=== PATIENT | female | born 1960 | race Caucasian/White ===

== ENCOUNTER 2018-06-22 22:25 | Emergency (ER) | payer BC, OTHER ==
[2018-06-22 22:30] VITALS: BP 157/81; PULSE 83; RESP 20; TEMP 97.8
[2018-06-22] MEDS ORDERED: traMADol 50 MG STARTER PACK 3 TAB BTL PO STA (23:20)
--- NOTE | 2018-06-22 23:24 | ED ---
ENT HPI - General Source: patient Mode of arrival: ambulatory Limitations: no limitations <Francisca Morin - Last Filed: 06/23/18 00:02> <Karmen Meraz - Last Filed: 06/23/18 04:09> - General Chief complaint: Dental/Oral Stated complaint: Swollen jaw - History of Present Illness Initial comments: 57-year-old female no past medical history presenting today for chief complaint of right lower dental pain. Patient states that she began noticing a toothache in the area where she has a current cracked tooth on Thursday afternoon. Patient presented to her dentist on Thursday where she was started on penicillin VK. There is no palpable abscess at that time. Patient had mild left-sided facial swelling. Patient states that she didn't begin taking her antibiotics until this morning, she has taken 3 doses total today. Patient states that the swelling increased of the left lower jaw. Patient denies any difficulty breathing, difficulty swallowing, neck tightness, swelling below tongue, swelling of the neck, fever, chills, malaise. Patient does admit to severe pain. She states the pain is not alleviated with [id number] Tylenol. Remainder of our was negative, Patient denies any recent shortness of breath, chest pain, back pain, abdominal pain, nausea or vomiting, numbness or tingling , dysuria or hematuria, constipation or diarrhea, headaches or visual changes, or any other complaints. Upon arrival patient appears nontoxic, vital signs within acceptable limits. Patient afebrile. (Francisca Morin) - Related Data Home Medications Medication Instructions Recorded Confirmed Ibuprofen [Motrin Ib] 400 mg PO Q6H PRN 06/22/18 06/22/18 Penicillin V Potassium [Pen Vee K] 500 mg PO QID 06/22/18 06/22/18 Allergies Allergy/AdvReac Type Severity Reaction Status Date / Time codeine AdvReac Nausea & Verified 06/22/18 22:44 Vomiting Review of Systems ROS Other: All systems not noted in ROS Statement are negative. Constitutional: Denies: fever, chills, night sweats Eyes: Denies: eye pain ENT: Reports: dental pain. Denies: ear pain, throat pain Respiratory: Denies: as per HPI, cough, dyspnea, wheezes, hemoptysis, stridor Cardiovascular: Denies: chest pain, palpitations Endocrine: Denies: fatigue Gastrointestinal: Denies: abdominal pain, nausea, vomiting, diarrhea, constipation, hematemesis, melena Genitourinary: Denies: urgency, dysuria, frequency Musculoskeletal: Denies: back pain Skin: Denies: rash, lesions Neurological: Denies: headache, weakness, numbness, paresthesias, confusion <Francisca Morin L - Last Filed: 06/23/18 00:02> ROS Other: All systems not noted in ROS Statement are negative. <Karmen Meraz P - Last Filed: 06/23/18 04:09> ROS Statement: Those systems with pertinent positive or pertinent negative responses have been documented in the HPI. Past Medical History Past Medical History: No Reported History History of Any Multi-Drug Resistant Organisms: MRSA Date of last positivie culture/infection: 2007 MDRO Source:: KNEE Past Surgical History: No Surgical Hx Reported Past Psychological History: No Psychological Hx Reported Smoking Status: Current every day smoker Past Alcohol Use History: Occasional Past Drug Use History: None Reported <PatienceFrancisca L - Last Filed: 06/23/18 00:02> General Exam Limitations: no limitations <BeaugarciaFrancisca L - Last Filed: 06/23/18 00:02> <Karmen Meraz P - Last Filed: 06/23/18 04:09> - General Exam Comments Initial Comments: General: The patient is awake and alert, in no distress, and does not appear acutely ill. Ears, nose, mouth and throat: There are moist mucous membranes and no oral lesions. Patient is overall poor dentition, there is multiple cracked teeth and caries. Tooth #28 is cracked, there is no palpable fluctuant area of abscess. Patient is tender to percussion. There is mild left-sided facial swelling. There is no swelling below the angle of the mandible, no neck swelling. There is no palpable anterior cervical lymph nodes the. Patient is no swelling below her tongue. There is no noted stridor on exam. Neck: The neck is supple, there is no tenderness or JVD. Cardiovascular: There is a regular rate and rhythm. No murmur, rub or gallop is appreciated. Respiratory: Lungs are clear to auscultation, respirations are non-labored, breath sounds are equal. No wheezes, stridor, rales, or rhonchi. Musculoskeletal: Normal ROM, no tenderness. Strength 5/5. Sensation intact. Pulses equal bilaterally 2+. Neurological: A&O x 3. CN II-XII intact, There are no obvious motor or sensory deficits. Coordination appears grossly intact. Speech is normal. Skin: Skin is warm and dry and no rashes or lesions are noted. Psychiatric: Cooperative, appropriate mood & affect, normal judgment. (Francisca Morin) Vital Signs 06/22/18 22:27 Temperature 97.8 F Pulse Rate 83 Respiratory 20 Rate Blood Pressure 157/81 O2 Sat by Pulse 98 Oximetry Medical Decision Making <Francisca Morin - Last Filed: 06/23/18 00:02> <Karmen Meraz - Last Filed: 06/23/18 04:09> - Medical Decision Making At this time I feel patient's facial swelling is consistent with periapical abscess. There is no fluctuant abscess for drainage at this time. No signs of Srinivas's angina or respiratory compromise. Patient was instructed to continue taking penicillin VK as prescribed by her dentist. Patient states that she currently has a scheduled appointment with oral surgery for evaluation. This time he notices failed outpatient therapy considering patient began taking antibiotics this morning and has had only 3 doses. Patient does not appear toxic, she appears well. Patient was given tramadol for pain management. The risks associated tramadol were discussed at length with patient including risk of overdose and addiction. Patient verbalized understanding. Case was discussed in detail with Dr. Meraz who agrees with impression and plan. Patient will be discharged with oral surgery follow-up instruction to continue penicillin VK as prescribed by dentist. Patient is agreeable to plan. Patient denies questions at this time. Patient was discharged in stable condition. (Francisca Morin) I was available for consultation in the emergency department. The history and physical exam were done by the midlevel provider. I was consulted for this patient's care. I reviewed the case with the midlevel provider and based on their presentation of the patient, I agree with the assessment, medical decision making and plan of care as documented. (Karmen Meraz) Disposition Is patient prescribed a controlled substance at d/c from ED?: No Time of Disposition: 23:23 <Francisca Morin - Last Filed: 06/23/18 00:02> <Meraz,Karmen P - Last Filed: 06/23/18 04:09> Clinical Impression: Periapical abscess Disposition: HOME SELF-CARE Condition: Good Instructions: Dental Abscess (ED) Additional Instructions: Please use medication as discussed. Please follow-up with dentist as scheduled. Please seek oral surgeon follow-up in the next 2-3 days. Please return to emergency room if the symptoms increase or worsen or for any other concerns, as discussed. Please do not mix any focal, benzodiazepines or other narcotics as discussed with the use of tramadol. No driving, use of machinery or working under the influence of tramadol. Referrals: None,Stated [Primary Care Provider] - 1-2 days Lee Allison DDS [STAFF PHYSICIAN] - 1-2 days
== END 2018-06-22 23:32 | disposition home or self-care (01) ==
LOC: EC 22:25
DX: K04.7 Periapical abscess without sinus (principal); F17.200 Nicotine dependence, unspecified, uncomplicated; Z88.5 Allergy status to narcotic agent
CPT/HCPCS: 99283

== ENCOUNTER 2019-03-13 05:11 | Emergency (ER) | payer BC, OTHER ==
[2019-03-13 05:22] VITALS: BP 156/74; PULSE 84; RESP 16; TEMP 97.7
[2019-03-13] MEDS ORDERED: SULFAMETHOX-TMP 800-160MG 1 EACH TAB PO STA (05:44)
--- NOTE | 2019-03-13 05:45 | ED ---
Skin/Abscess/FB HPI - General Chief complaint: Skin/Abscess/Foreign Body Stated complaint: Female Time Seen by Provider: 03/13/19 05:14 Source: patient, RN notes reviewed, old records reviewed Mode of arrival: ambulatory Limitations: no limitations - History of Present Illness Initial comments: This is a 50-year-old 8-year-old female the ER for evaluation. Patient presents today for evaluation regards to general pain. Patient wishes either ingrown hair abscess left labial area. Patient drainage from that site severe pain worsening for quite a few days now, patient was unable to make it to her primary OB which is entirely Week. No prior history of similar complaint. No fevers. MD complaint: abscess/boil ((. Nail, labial area) -: week(s) Tetanus Up to Date: yes Location: genitals Severity: severe Quality: aching Consistency: constant Improves with: none Worsens with: none Context: none - Related Data Previous Rx's Medication Instructions Recorded Sulfamethox-Tmp 800-160Mg [Bactrim 2 tab PO BID #28 tab 03/13/19 DS 800-160 mg] Allergies Allergy/AdvReac Type Severity Reaction Status Date / Time codeine AdvReac Nausea & Verified 03/13/19 05:19 Vomiting Review of Systems ROS Statement: Those systems with pertinent positive or pertinent negative responses have been documented in the HPI. ROS Other: All systems not noted in ROS Statement are negative. Past Medical History Past Medical History: No Reported History History of Any Multi-Drug Resistant Organisms: MRSA Date of last positivie culture/infection: 2007 MDRO Source:: KNEE Past Surgical History: No Surgical Hx Reported Past Psychological History: No Psychological Hx Reported Smoking Status: Current every day smoker Past Alcohol Use History: Occasional Past Drug Use History: None Reported General Exam - General Exam Comments Initial Comments: Left Labial area significant abscess Limitations: no limitations General appearance: alert, in no apparent distress Head exam: Present: atraumatic, normocephalic, normal inspection Eye exam: Present: normal appearance, PERRL, EOMI. Absent: scleral icterus, conjunctival injection, periorbital swelling ENT exam: Present: normal exam, mucous membranes moist Neck exam: Present: normal inspection. Absent: tenderness, meningismus, lymphadenopathy Respiratory exam: Present: normal lung sounds bilaterally. Absent: respiratory distress, wheezes, rales, rhonchi, stridor Cardiovascular Exam: Present: regular rate, normal rhythm, normal heart sounds. Absent: systolic murmur, diastolic murmur, rubs, gallop, clicks GI/Abdominal exam: Present: soft, normal bowel sounds. Absent: distended, tenderness, guarding, rebound, rigid Extremities exam: Present: normal inspection, full ROM, normal capillary refill. Absent: tenderness, pedal edema, joint swelling, calf tenderness Back exam: Present: normal inspection Neurological exam: Present: alert, oriented X3, CN II-XII intact Psychiatric exam: Present: normal affect, normal mood Skin exam: Present: warm, dry, intact, normal color. Absent: rash Course Vital Signs 03/13/19 05:19 Temperature 97.7 F Pulse Rate 84 Respiratory 16 Rate Blood Pressure 156/74 O2 Sat by Pulse 99 Oximetry Procedures - Incision & Drainage Consent Obtained: verbal consent Site: vulva/vagina Anesthetic Used: lidocaine 1%, with epi I&D Cleaning Method: Alcohol Wipe Sterile Field Used?: Yes Scalpel Used: #11 Needle Aspiration Performed?: No Irrigation Performed?: Yes I&D Drainage Obtained: Pus Culture Obtained?: No Patient Tolerated Procedure: well - Laceration Laceration #1 Indication: laceration Site: vulva/vagina Patient Tolerated Procedure: well Medical Decision Making - Medical Decision Making 50 female the ER for evaluation. Patient resents today for evaluation regards to left labial abscess. Abscess is incised and drained here in the ER, Purulent drainage is obtained. Patient placed on antibiotics and can be discharged home Disposition Clinical Impression: Perineal abscess Disposition: HOME SELF-CARE Condition: Good Instructions (If sedation given, give patient instructions): Abscess Incision and Drainage (ED), Abscess (ED) Prescriptions: Sulfamethox-Tmp 800-160Mg [Bactrim DS 800-160 mg] 2 tab PO BID #28 tab Is patient prescribed a controlled substance at d/c from ED?: No Referrals: Rivera Jason DO [Primary Care Provider] - 1-2 days
== END 2019-03-13 05:56 | disposition home or self-care (01) ==
LOC: EC 05:11
DX: L02.215 Cutaneous abscess of perineum (principal); F17.200 Nicotine dependence, unspecified, uncomplicated; Z86.14 Personal history of Methicillin resistant Staphylococcus aureus infection; Z88.5 Allergy status to narcotic agent
CPT/HCPCS: 56405; 99283

== ENCOUNTER → 2020-05-07 | Outpatient (CLI) | payer BC ==
--- NOTE | 2020-05-08 13:04 | XR ---
EXAMINATION TYPE: XR ankle complete RT DATE OF EXAM: 05/07/2020 COMPARISON: None HISTORY: Pain TECHNIQUE: Three-view right ankle FINDINGS: No acute fracture or dislocation is evident. Ankle mortise is intact. Soft tissues are norm al. Follow-up exams can be performed 7-10 days from acute trauma for continued pain. IMPRESSION: 1. Normal three-view right ankle.
--- NOTE | 2020-05-08 13:08 | XR ---
EXAMINATION TYPE: XR foot complete RT DATE OF EXAM: 05/07/2020 COMPARISON: None HISTORY: Pain, swelling TECHNIQUE: Three-view right foot FINDINGS: Joint spaces are preserved. No acute fracture or dislocation is evident. Soft tissues are n ormal. IMPRESSION: 1. Normal three-view right foot. 2. Follow-up exams can be performed 7-10 days from acute trauma for continued pain.
== END | disposition home or self-care (01) ==
LOC: RADXRYALE 16:04
PROVIDERS: ATTEND Physician Assistant Medical
DX: M25.571 Pain in right ankle and joints of right foot (principal)

== ENCOUNTER 2022-03-10 09:17 | Emergency (ER) | payer BC ==
[2022-03-10 09:28] VITALS: BP 185/82; PULSE 88; RESP 18; TEMP 97.7
[2022-03-10] MEDS ORDERED: clonazePAM 0.5 MG TAB PO STA (10:28)
--- NOTE | 2022-03-10 10:40 | ED ---
General Adult HPI - General Chief complaint: Psychiatric Symptoms Stated complaint: Depression,Anxiety Time Seen by Provider: 03/10/22 09:50 Source: patient, family, RN notes reviewed, old records reviewed Mode of arrival: ambulatory Limitations: no limitations - History of Present Illness Initial comments: 61-year-old female presents tearful with complaints of anxiety. Patient states that she has not had problems with anxiety in 11 years. In the past she was placed on Paxil and Klonopin with relief. She has tried Xanax and Ativan past which made her symptoms worse. She does not have a current primary care doctor. She did try to call to make an appointment with the doctor however no one is accepting new patients so they came to the emergency room. Her significant other at bedside states that he believes that her symptoms are related to her son moving to [place] 2 weeks ago. She denies any homicidal or suicidal ideations. She does drink 2 beers a night to help her sleep. She does smoke approximately today. Denies any illegal drug use. -: week(s) (2) Severity scale (1-10): 0 Consistency: constant Improves with: none Worsens with: none Associated Symptoms: other (anxiety) - Related Data Previous Rx's Medication Instructions Recorded Sulfamethox-Tmp 800-160Mg [Bactrim 2 tab PO BID #28 tab 03/13/19 DS 800-160 mg] hydrOXYzine HCL [Atarax] 50 mg PO QID PRN #30 tablet 03/10/22 Allergies Allergy/AdvReac Type Severity Reaction Status Date / Time codeine AdvReac Nausea & Verified 03/10/22 09:27 Vomiting Review of Systems ROS Statement: Those systems with pertinent positive or pertinent negative responses have been documented in the HPI. ROS Other: All systems not noted in ROS Statement are negative. Past Medical History Past Medical History: No Reported History History of Any Multi-Drug Resistant Organisms: MRSA Date of last positivie culture/infection: 2007 MDRO Source:: KNEE Past Surgical History: No Surgical Hx Reported Past Psychological History: Depression Smoking Status: Current every day smoker Past Alcohol Use History: Daily Past Drug Use History: None Reported General Exam Limitations: no limitations General appearance: alert, anxious Head exam: Present: atraumatic Eye exam: Absent: scleral icterus, conjunctival injection, periorbital swelling ENT exam: Present: mucous membranes moist Respiratory exam: Present: normal lung sounds bilaterally. Absent: respiratory distress, accessory muscle use Cardiovascular Exam: Present: regular rate GI/Abdominal exam: Present: soft Extremities exam: Present: normal capillary refill Neurological exam: Present: alert, oriented X3 Psychiatric exam: Present: depressed, anxious (tearful). Absent: agitated, flat affect, manic, homicidal ideation, suicidal ideation Skin exam: Present: warm, dry, normal color. Absent: cyanosis, diaphoretic Course Vital Signs 03/10/22 09:22 Temperature 97.7 F Pulse Rate 88 Respiratory 18 Rate Blood Pressure 185/82 O2 Sat by Pulse 99 Oximetry Medical Decision Making - Medical Decision Making 61-year-old female presents tearful with complaints of anxiety. She does have a history of anxiety but has not had any medications in 11 years. She denies any homicidal or suicidal ideations. Her significant other at bedside states that he believes that her symptoms are related to her son moving to [place] 2 weeks ago. She does drink 2 beers a night to help her sleep. She does smoke a pack a day. Denies any illegal drug use. Patient was given dose of Klonopin in the emergency room. I did write her a prescription for hydroxyzine, and I explained the importance of following up with [facility] and a primary care doctor who can monitor her response to any antidepressants or anxiolytics. I explained that the emergency room can only prescribed 3 days worth of these medications on a one-time basis in her best care will be achieved through primary care. She was given a referral to [facility] and a number for a primary care doctor. She was discharged home in the care of her and directed to return to the emergency room with a new or concerning symptoms, especially suicidal or homicidal ideation. Case discussed with Dr. Teague. Disposition Clinical Impression: Acute anxiety, Adjustment reaction of adult life Disposition: HOME SELF-CARE Condition: Good Instructions (If sedation given, give patient instructions): Anxiety (ED) Additional Instructions: Follow-up with a primary care doctor for continuation of care. Contact [facility] for anxiety or depression.. Take the hydroxyzine as prescribed. Do not drink alcohol while taking this medication. Return to the emergency room with any new or concerning symptoms including suicidal or homicidal ideations. Prescriptions: hydrOXYzine HCL [Atarax] 50 mg PO QID PRN #30 tablet PRN Reason: Anxiety Is patient prescribed a controlled substance at d/c from ED?: No Referrals: None,Stated [Primary Care Provider] - 1-2 days Janna Ramos MD [STAFF PHYSICIAN] - 1-2 days [facility] [NON-STAFF] - 1-2 days Time of Disposition: 11:12
== END 2022-03-10 11:25 | disposition home or self-care (01) ==
LOC: EC 09:17
DX: F43.22 Adjustment disorder with anxiety (principal); F17.200 Nicotine dependence, unspecified, uncomplicated; Z88.5 Allergy status to narcotic agent
CPT/HCPCS: 99284

== ENCOUNTER 2025-02-28 12:27 | Observation (INO) | payer BC ==
--- NOTE | 2025-02-28 13:32 | ED ---
General Adult HPI - General Chief complaint: Recheck/Abnormal Lab/Rx Stated complaint: Abn BP Time Seen by Provider: 02/28/25 12:30 Source: patient Mode of arrival: ambulatory Limitations: no limitations - History of Present Illness Initial comments: 64-year-old female presents the emergency department reporting chest pain. States for the past 3 weeks she has gotten intermittent chest pressure. She saw her primary care yesterday. Found that she had significantly elevated blood pressure. She denies history of high blood pressure. Patient does not take any medications. Unsure if she has high cholesterol or issues with her blood sugar. She has no active chest pain at this time. No history of cardiac disease. Has been monitoring her blood pressure at home today and it continued to remain high therefore she was told to come into the emergency department. - Related Data Home Medications Medication Instructions Recorded Confirmed Naproxen [Naprosyn] 500 mg PO BID 02/28/25 02/28/25 Allergies Allergy/AdvReac Type Severity Reaction Status Date / Time codeine AdvReac Nausea & Verified 02/28/25 14:46 Vomiting PLASTIC BANDAGES Allergy Rash/Hives Uncoded 02/28/25 14:46 Review of Systems ROS Statement: Those systems with pertinent positive or pertinent negative responses have been documented in the HPI. ROS Other: All systems not noted in ROS Statement are negative. Past Medical History Past Medical History: No Reported History History of Any Multi-Drug Resistant Organisms: MRSA Date of last positivie culture/infection: 2007 MDRO Source:: KNEE Past Surgical History: No Surgical Hx Reported Past Psychological History: Depression Smoking Status: Current every day smoker Past Alcohol Use History: Daily Past Drug Use History: None Reported General Exam Limitations: no limitations General appearance: alert, in no apparent distress Head exam: Present: atraumatic, normocephalic, normal inspection Eye exam: Present: normal appearance, PERRL, EOMI. Absent: scleral icterus, conjunctival injection, periorbital swelling ENT exam: Present: normal exam, mucous membranes moist Neck exam: Present: normal inspection. Absent: tenderness, meningismus, lymphadenopathy Respiratory exam: Present: normal lung sounds bilaterally. Absent: respiratory distress, wheezes, rales, rhonchi, stridor Cardiovascular Exam: Present: regular rate, normal rhythm, normal heart sounds. Absent: systolic murmur, diastolic murmur, rubs, gallop, clicks GI/Abdominal exam: Present: soft, normal bowel sounds. Absent: distended, tenderness, guarding, rebound, rigid Extremities exam: Present: normal inspection, full ROM, normal capillary refill. Absent: tenderness, pedal edema, joint swelling, calf tenderness Back exam: Present: normal inspection Neurological exam: Present: alert, oriented X3, CN II-XII intact Psychiatric exam: Present: normal affect, normal mood Skin exam: Present: warm, dry, intact, normal color. Absent: rash Course Vital Signs 02/28/25 02/28/25 02/28/25 12:28 14:17 15:07 Temperature 97.7 F 98.4 F Pulse Rate 81 88 83 Respiratory 18 18 18 Rate Blood Pressure 212/95 208/103 185/92 O2 Sat by Pulse 99 98 97 Oximetry 02/28/25 02/28/25 16:03 20:09 Temperature 98.2 F Pulse Rate 79 66 Respiratory 19 20 Rate Blood Pressure 178/78 126/73 O2 Sat by Pulse 96 97 Oximetry Medical Decision Making - Medical Decision Making Was pt. sent in by a medical professional or institution (Dr. PA, SHIPPER/RECEIVER, urgent care, hospital, or usp...) When possible be specific @ -Patient sent in by her primary care Did you speak to anyone other than the patient for history (EMS, parent, family, police, friend...)? What history was obtained from this source @ -Spoke with the for history Did you review nursing and triage notes (agree or disagree)? Why? @ -I reviewed and agree with nursing and triage notes Were old charts reviewed (outside hosp., previous admission, EMS record, old EKG, old radiological studies, urgent care reports/EKG's, usp records)? Report findings @ -No old charts were reviewed Differential Diagnosis (chest pain, altered mental status, abdominal pain women, abdominal pain men, vaginal bleeding, weakness, fever, dyspnea, syncope, headache, dizziness, GI bleed, back pain, seizure, CVA, palpatations, mental health, musculoskeletal)? @ -Differential Chest Pain: Stable Angina, Unstable Angina, STEMI, NSTEMI Aortic Dissection, Pneumothorax, Musculoskeletal, Esophageal Spasm GERD, Cholecystitis, Pancreatitis, Zoster, this is not meant to be an all-inclusive list. EKG interpreted by me (3pts min.). @ -Yes and demonstrates sinus rhythm with rate of 77. NC interval 152. QRS 77. QTc of 375. No acute ST segment elevations. ST depression 2, 3, aVF X-rays interpreted by me (1pt min.). @ -Yes which demonstrates mild cardiomegaly CT interpreted by me (1pt min.). @ -None done U/S interpreted by me (1pt. min.). @ -None done What testing was considered but not performed or refused? (CT, X-rays, U/S, labs)? Why? @ -None What meds were considered but not given or refused? Why? @ -None Did you discuss the management of the patient with other professionals ( professionals i.e. DrCinthia, PA, SHIPPER/RECEIVER, lab, RT, psych nurse, social sciences department chair, general machine operator, teacher, natural resource officer, top case assembler)? Give summary @ -Spoke with Dr. Wilson for admission Was smoking cessation discussed for >3mins.? @ -No Was critical care preformed (if so, how long)? @ -No Were there social determinants of health that impacted care today? How? (Homelessness, low income, unemployed, alcoholism, drug addiction, transportation, low edu. Level, literacy, decrease access to med. care, retirement, rehab)? @ -No Was there de-escalation of care discussed even if they declined (Discuss DNR or withdrawal of care, Hospice)? DNR status @ -No What co-morbidities impacted this encounter? (DM, HTN, Smoking, COPD, CAD, Cancer, CVA, ARF, Chemo, Hep., AIDS, mental health diagnosis, sleep apnea, morbid obesity)? @ -None Was patient admitted / discharged? Hospital course, mention meds given and route, prescriptions, significant lab abnormalities, going to OR and other pertinent info. @ -Upon arrival patient seen and evaluated in room 20. Thorough history and physical exam was performed. Patient placed on continuous pulse ox and cardiac monitoring. Twelve-lead EKG is obtained which demonstrates slight ST depression. Laboratory studies are conducted and chest x-ray is performed. I did give the patient a dose of Norvasc for her high blood pressure. I recommended admission for serial troponins and cardiology evaluation. Patient was agreeable to this. Spoke with Dr. Wilson for the admissions Undiagnosed new problem with uncertain prognosis? @ -No Drug Therapy requiring intensive monitoring for toxicity (Heparin, Nitro, Insulin, Cardizem)? @ -No Were any procedures done? @ -No Diagnosis/symptom? @ -Acute chest pain, accelerated hypertension Acute, or Chronic, or Acute on Chronic? @ -Acute Uncomplicated (without systemic symptoms) or Complicated (systemic symptoms)? @ -Complicated Side effects of treatment? @ -No Exacerbation, Progression, or Severe Exacerbation? @ -No Poses a threat to life or bodily function? How? (Chest pain, USA, NH, pneumonia, PE, COPD, DKA, ARF, appy, cholecystitis, CVA, Diverticulitis, Homicidal, Suicidal, threat to staff... and all critical care pts) @ -No - Lab Data Result diagrams: 02/28/25 13:37 02/28/25 14:11 Lab Results 02/28/25 02/28/25 02/28/25 Range/Units 13:37 14:11 14:11 WBC 8.41 (4.50-10.00) 10*3/uL RBC 5.86 H (4.10-5.20) 10*6/uL Hgb 18.0 H (12.0-15.0) g/dL Hct 51.0 H (37.2-46.3) % MCV 87.0 (80.0-97.0) fL MCH 30.7 (27.0-32.0) pg MCHC 35.3 (32.0-37.0) g/dL Plt Count 415 (140-440) 10*3/uL MPV 10.0 (9.5-12.2) fL Immature Gran % (Auto) 0.5 % Neutrophils % 67.1 % Lymphocytes % 23.2 % Monocytes % 8.0 % Eosinophils % 0.6 % Basophils % 0.6 % Immature Gran # 0.04 (0.00-0.04) 10*3/uL Neutrophils # 5.65 (1.80-7.70) 10*3/uL Lymphocytes # 1.95 (0.90-5.00) 10*3/uL Monocytes # 0.67 (0.20-1.00) 10*3/uL Eosinophils # 0.05 (0.04-0.35) 10*3/uL Basophils # 0.05 (0.00-0.10) 10*3/uL PT 10.6 (10.0-12.5) sec INR 0.9 (<1.2) APTT 23.6 (22.0-30.0) sec Sodium (137-145) mmol/L Potassium (3.5-5.1) mmol/L Chloride (98-107) mmol/L Carbon Dioxide (22-30) mmol/L Anion Gap mmol/L BUN (7-17) mg/dL Creatinine (0.52-1.04) mg/dL Est GFR (CKD-EPI)AfAm (>60 ml/min/1.73 sqM) Est GFR (CKD-EPI)NonAf (>60 ml/min/1.73 sqM) Glucose (74-99) mg/dL Calcium (8.4-10.2) mg/dL Magnesium (1.6-2.3) mg/dL Total Bilirubin (0.2-1.3) mg/dL AST (14-36) U/L ALT (4-34) U/L Alkaline Phosphatase (38-126) U/L Troponin I <0.012 (0.000-0.034) ng/mL NT-Pro-B Natriuret Pep pg/mL Total Protein (6.3-8.2) g/dL Albumin (3.5-5.0) g/dL Lipase (23-300) U/L // Range/Units 14:11 WBC (4.50-10.00) 10*3/uL RBC (4.10-5.20) 10*6/uL Hgb (12.0-15.0) g/dL Hct (37.2-46.3) % MCV (80.0-97.0) fL MCH (27.0-32.0) pg MCHC (32.0-37.0) g/dL Plt Count (140-440) 10*3/uL MPV (9.5-12.2) fL Immature Gran % (Auto) % Neutrophils % % Lymphocytes % % Monocytes % % Eosinophils % % Basophils % % Immature Gran # (0.00-0.04) 10*3/uL Neutrophils # (1.80-7.70) 10*3/uL Lymphocytes # (0.90-5.00) 10*3/uL Monocytes # (0.20-1.00) 10*3/uL Eosinophils # (0.04-0.35) 10*3/uL Basophils # (0.00-0.10) 10*3/uL PT (10.0-12.5) sec INR (<1.2) APTT (22.0-30.0) sec Sodium 129 L (137-145) mmol/L Potassium 4.7 (3.5-5.1) mmol/L Chloride 95 L (98-107) mmol/L Carbon Dioxide 21 L (22-30) mmol/L Anion Gap 13 mmol/L BUN 7 (7-17) mg/dL Creatinine 0.34 L (0.52-1.04) mg/dL Est GFR (CKD-EPI)AfAm >90 (>60 ml/min/1.73 sqM) Est GFR (CKD-EPI)NonAf >90 (>60 ml/min/1.73 sqM) Glucose 119 H (74-99) mg/dL Calcium 10.6 H (8.4-10.2) mg/dL Magnesium 2.0 (1.6-2.3) mg/dL Total Bilirubin 0.8 (0.2-1.3) mg/dL AST 32 (14-36) U/L ALT 28 (4-34) U/L Alkaline Phosphatase 101 (38-126) U/L Troponin I (0.000-0.034) ng/mL NT-Pro-B Natriuret Pep 876 pg/mL Total Protein 7.8 (6.3-8.2) g/dL Albumin 4.8 (3.5-5.0) g/dL Lipase 47 (23-300) U/L Disposition Clinical Impression: Hypertension, Chest pain Disposition: [facility] Condition: Stable Is patient prescribed a controlled substance at d/c from ED?: No Time of Disposition: 15:45 Decision to Admit Reason: Admit from EC Decision Date: 02/28/25 Decision Time: 15:45
[2025-02-28 13:45] LABS: Basophils # (A) 0.05 10*3/uL (0.00-0.10); Basophils % (A) 0.6 %; Eosinophils # (A) 0.05 10*3/uL (0.04-0.35); Eosinophils % (A) 0.6 %; HCT 51.0 % (37.2-46.3); HGB 18.0 g/dL (12.0-15.0); Lymphocytes # (A) 1.95 10*3/uL (0.90-5.00); Lymphocytes % (A) 23.2 %; MCH 30.7 pg (27.0-32.0); MCHC 35.3 g/dL (32.0-37.0); MCV 87.0 fL (80.0-97.0); Monocytes # (A) 0.67 10*3/uL (0.20-1.00); Monocytes % (A) 8.0 %; Neutrophils # (A) 5.65 10*3/uL (1.80-7.70); Neutrophils % (A) 67.1 %; Platelet Count 415 10*3/uL (140-440); RBC 5.86 10*6/uL (4.10-5.20); RDW 13.0 % (11.5-14.5); WBC 8.41 10*3/uL (4.50-10.00)
--- NOTE | 2025-02-28 14:34 | XR ---
EXAMINATION TYPE: XR chest 2V DATE OF EXAM: 02/28/2025 1:57 PM COMPARISON: None CLINICAL INDICATION: Female, 64 years old with history of Chest Pain, , TECHNIQUE: AP and lateral views FINDINGS: Heart mildly enlarged. Hyperinflation with mild interstitial prominence. No consolidation or pleural effusion. IMPRESSION: Mild cardiomegaly and COPD. Otherwise, no definite acute process. [facility], Workstation: [facility], 02/28/2025 2:32 PM
[2025-02-28 14:49] LABS: ALT 28 U/L (4-34); AST 32 U/L (14-36); African American GFR (CKD) >90 (>60 ml/min/1.73 sqM); Albumin 4.8 g/dL (3.5-5.0); Alkaline Phosphatase 101 U/L (38-126); Anion Gap 13 mmol/L; Blood Urea Nitrogen 7 mg/dL (7-17); Calcium 10.6 mg/dL (8.4-10.2); Carbon Dioxide 21 mmol/L (22-30); Chloride 95 mmol/L (98-107); Glucose 119 mg/dL (74-99); Lipase 47 U/L (23-300); Magnesium 2.0 mg/dL (1.6-2.3); Non-African American GFR(CKD) >90 (>60 ml/min/1.73 sqM); Potassium 4.7 mmol/L (3.5-5.1); Sodium 129 mmol/L (137-145); Total Protein 7.8 g/dL (6.3-8.2)
[2025-02-28 14:50] LABS: INR 0.9 (<1.2); Partial Thromboplastin Time 23.6 sec (22.0-30.0); Prothrombin Time 10.6 sec (10.0-12.5)
[2025-02-28 14:55] LABS: NT-Pro-B-Type Natriuretic Pept 876 pg/mL
[2025-02-28] MEDS ORDERED: NALOXONE 0.4 MG/ML 1 ML VIAL IV PRN (15:49)
[2025-02-28] MEDS: amLODIPine 5 MG TAB PO STA (16:05)
[2025-02-28] MEDS: ASPIRIN 81 MG PO STA (16:06)
[2025-02-28] MEDS ORDERED: NITROGLYCERIN SL TABS 0.4 MG TAB SUBLINGUAL PRN (17:11)
[2025-02-28] MEDS: SODIUM CHLORIDE 0.9% 1,000 ML IV SCH (17:28)
[2025-02-28] MEDS: LISINOPRIL-HCTZ 10-12.5 MG 1 EACH TAB PO SCH (17:28)
--- NOTE | 2025-02-28 18:39 | P.HPIM ---
History of Present Illness H&P Date: 02/28/25 Patient is a 64-year-old female with no reported past medical history presented to the ER with elevated BP, lower back pain. Back pain started 1 week ago after she pulled her muscle moving furniture. The pain has been getting worse prompting her to be evaluated by primary care physician. She mentions intermittent chest discomfort that she describes as anything from [id number] sensation to squeezing chest pain, usually not associated with physical activity although 3 weeks ago she was doing her grocery shopping and developed nonradiating crushing chest pain that went away on its own. She denies any shortness of breath, bowel habit changes, dysuria, lower extremity swelling. Patient is a current smoker, half a pack a day for 30 years intermittently. Patient has not been following with primary care physician and went to see 1 yesterday where she was found to have significantly elevated blood pressure, PCP initiated workup and sent her home for blood pressure to be monitored. When she checked it today it was again significantly elevated and she was told to go to the ER for further management and evaluation. Patient denies any previous history of heart disease, lung disease. On arrival afebrile, heart rate in 80s, blood pressure elevated 212/95, satting well on room air. Blood pressure came down to 178/78 later on. Lab work showed normal WBC count, hemoglobin elevated 18.0, hematocrit elevated 51, normal coagulation panel, sodium low 129, chloride low 95, normal sodium, creatinine 0.38, calcium elevated 10.6, glucose 119, troponin negative, BNP 864. Chest x- ray showed no acute process but did reveal cardiomegaly and COPD changes. EKG showed sinus rhythm, QTc 375, ST depression in lead II, 3, aVF. Patient will admitted for hypertensive emergency with cardiology consulted, TTE ordered and pending. Pertinent positives and negatives as discussed in HPI, a complete review of systems was performed and all other systems are negative. Patient seen and examined at bedside. Vital signs reviewed General: nontoxic, no distress, appears at stated age Derm: warm, dry Head: atraumatic, normocephalic, symmetric Eyes: EOMI, no lid lag, anicteric sclera, pupils equal round reactive to light ENT: Nose and ears atraumatic Neck: No thyromegaly, supple Mouth: no lip lesion, mucus membranes moist Cardiovascular: S1S2 reg, no murmur, no edema Lungs: clear to auscultation bilateral, no rhonchi, no rales, no wheeze, no accessory muscle use Abdominal: soft, nontender to palpation, no guarding, no appreciable organomegaly Ext: no gross muscle atrophy, muscle strength muscle strength 5 out of 5 in all 4 extremities, no contractures, lower back tenderness Neuro: CN II-XII grossly intact Psych: Alert, oriented, appropriate affect Assessment/Plan: Chest pain Hypertensive emergency Erythrocytosis Hypochloremic hyponatremia Hypercalcemia -Cardiology consulted, appreciate recommendations -TTE ordered and pending -Continue telemetry -Check TSH, lipid panel, A1c -BMP daily -Will start with gentle hydration at 75 cc/h for electrolyte abnormalities, m onitor for signs of fluid overload - Start Lopressor 25 twice daily, lisinopril hydrochlorothiazide 10/12.5 daily, atorvastatin 40 mg daily, and aspirin 81 mg daily -Check urinalysis for proteinuria Acute lower back pain, likely musculoskeletal in nature -Lower back pain on palpation tender, decreased range of motion, patient is able to ambulate, she described feeling of pulled muscle during moving furniture -Patient does not have any focal neurological deficit, no red flag symptoms -Will try lidocaine patch, naproxen, provide with PPI protonix 40 oral daily Current smoker, we discussed smoking cessation, patient previously was able to stop smoking, currently declines nicotine patch The patient is admitted with an anticipated less than 2 midnight stay as observation status for evaluation of hypertensive emergency, chest pain. CODE STATUS: Full code DVT prophylaxis: Lovenox Anticipated discharge date: 03/[address]: Home A total of 40 minutes was spent on the care of this complex patient more than 50% of the time was spent in counseling and care coordination. Past Medical History Past Medical History: No Reported History History of Any Multi-Drug Resistant Organisms: MRSA Date of last positivie culture/infection: 2007 MDRO Source:: KNEE Past Surgical History: No Surgical Hx Reported Past Psychological History: Depression Smoking Status: Current every day smoker Past Alcohol Use History: Daily Past Drug Use History: None Reported Medications and Allergies Home Medications Medication Instructions Recorded Confirmed Type Naproxen [Naprosyn] 500 mg PO BID 02/28/25 02/28/25 History Allergies Allergy/AdvReac Type Severity Reaction Status Date / Time codeine AdvReac Nausea & Verified 02/28/25 14:46 Vomiting PLASTIC BANDAGES Allergy Rash/Hives Uncoded 02/28/25 14:46 Physical Exam Vitals: Vital Signs Temp Pulse Resp BP Pulse Ox 02/28/25 16:03 79 19 178/78 96 02/28/25 15:07 98.4 F 83 18 185/92 97 02/28/25 14:17 88 18 208/103 98 02/28/25 12:28 97.7 F 81 18 212/95 99 Intake and Output 02/28/25 02/28/25 02/28/25 06:59 14:59 22:59 Other: Weight 75.296 kg Results CBC & Chem 7: 02/28/25 13:37 02/28/25 14:11 Labs: Abnormal Lab Results - Last 24 Hours (Table) 02/28/25 02/28/25 Range/Units 13:37 14:11 RBC 5.86 H (4.10-5.20) 10*6/uL Hgb 18.0 H (12.0-15.0) g/dL Hct 51.0 H (37.2-46.3) % Sodium 129 L (137-145) mmol/L Chloride 95 L (98-107) mmol/L Carbon Dioxide 21 L (22-30) mmol/L Creatinine 0.34 L (0.52-1.04) mg/dL Glucose 119 H (74-99) mg/dL Calcium 10.6 H (8.4-10.2) mg/dL
[2025-02-28] MEDS: LIDOCAINE 4% PATCH TOPICAL SCH (19:10)
[2025-02-28 20:29] LABS: Bilirubin,Urine Negative (Negative); Blood,Urine Negative (Negative); Color,Urine Colorless; Glucose,Urine (UA) Negative (Negative); Ketones,Urine Negative (Negative); Leukocyte Esterase,Urine Small (Negative); Nitrite,Urine Negative (Negative); PH, Urine 7.0 (5.0-8.0); Protein,Urine Negative (Negative); RBC,Urine <1 /hpf (0-5); Specific Gravity,Urine 1.004 (1.001-1.035); Squamous Epithelial Cell,Urine 1 /hpf (0-4); Urobilinogen,Urine <2.0 mg/dL (<2.0); WBC,Urine 4 /hpf (0-5)
[2025-02-28] MEDS: NAPROXEN 250 MG TAB PO SCH (20:34)
[2025-02-28] MEDS: METOPROLOL TARTRATE 25 MG TAB PO SCH (20:35)
[2025-02-28] MEDS: ATORVASTATIN 40 MG TAB PO SCH (20:36)
[2025-03-01 02:35] LABS: Cholesterol 194.00 mg/dL (0.00-200.00); HDL Cholesterol 68.00 mg/dL (40.00-60.00); Triglycerides 77.80 mg/dL (0.00-149.00); VLDL Calculation 15.56 mg/dL (5.00-40.00)
[2025-03-01 02:36] LABS: LDL Cholesterol,Calculated 110.4 mg/dL (0.0-131.0)
[2025-03-01] MEDS: PANTOPRAZOLE 40 MG TABLET PO SCH (06:25)
[2025-03-01 07:28] LABS: Basophils # (A) 0.05 10*3/uL (0.00-0.10); Basophils % (A) 0.7 %; Eosinophils # (A) 0.13 10*3/uL (0.04-0.35); Eosinophils % (A) 1.8 %; HCT 45.3 % (37.2-46.3); HGB 15.8 g/dL (12.0-15.0); Lymphocytes # (A) 2.19 10*3/uL (0.90-5.00); Lymphocytes % (A) 31.0 %; MCH 30.6 pg (27.0-32.0); MCHC 34.9 g/dL (32.0-37.0); MCV 87.8 fL (80.0-97.0); Monocytes # (A) 0.69 10*3/uL (0.20-1.00); Monocytes % (A) 9.8 %; Neutrophils # (A) 3.99 10*3/uL (1.80-7.70); Neutrophils % (A) 56.4 %; Platelet Count 394 10*3/uL (140-440); RBC 5.16 10*6/uL (4.10-5.20); RDW 12.8 % (11.5-14.5); WBC 7.07 10*3/uL (4.50-10.00)
[2025-03-01 07:54] LABS: African American GFR (CKD) >90 (>60 ml/min/1.73 sqM); Anion Gap 9 mmol/L; Blood Urea Nitrogen 8 mg/dL (7-17); Calcium 9.8 mg/dL (8.4-10.2); Carbon Dioxide 21 mmol/L (22-30); Chloride 100 mmol/L (98-107); Glucose 113 mg/dL (74-99); Non-African American GFR(CKD) >90 (>60 ml/min/1.73 sqM); Potassium 4.4 mmol/L (3.5-5.1); Sodium 130 mmol/L (137-145)
[2025-03-01] MEDS: ASPIRIN 81 MG PO SCH (08:09)
[2025-03-01] MEDS: ENOXAPARIN 40 MG/0.4 ML SYRINGE SQ SCH (08:12)
[2025-03-01 11:08] VITALS: BP 139/76; PULSE 55; RESP 17; TEMP 97.5
--- NOTE | 2025-03-01 11:08 | P.DS ---
Providers Date of admission: 02/28/25 15:55 Attending physician: Davida Wilson MD Consults: 02/28/25 15:49 Consult Physician Routine Consulting Provider: [facility] Consult Reason/Comments: acute chest pain, acc htn Do you want consulting provider notified?: Yes Primary care physician: Rivera Jason Hospital Course: Discharge Diagnosis: Atypical chest pain, ACS ruled out Hypertensive emergency Erythrocytosis likely due to dehydration Hypochloremic hyponatremia Hypercalcemia, resolved Acute lower back pain, likely musculoskeletal in nature Hospital Course: Patient is a 64-year-old female with no reported past medical history presented to the ER with elevated BP, lower back pain. Back pain started 1 week ago after she pulled her muscle moving furniture. The pain has been getting worse prompting her to be evaluated by primary care physician. She mentions intermittent chest discomfort that she describes as anything from [id number] sensation to squeezing chest pain, usually not associated with physical activity although 3 weeks ago she was doing her grocery shopping and developed nonradiating crushing chest pain that went away on its own. She denies any shortness of breath, bowel habit changes, dysuria, lower extremity swelling. Patient is a current smoker, half a pack a day for 30 years intermittently. Patient has not been following with primary care physician and went to see 1 yesterday where she was found to have significantly elevated blood pressure, PCP initiated workup and sent her home for blood pressure to be monitored. When she checked it today it was again significantly elevated and she was told to go to the ER for further management and evaluation. Patient denies any previous history of heart disease, lung disease. On arrival afebrile, heart rate in 80s, blood pressure elevated 212/95, satting well on room air. Blood pressure came down to 178/78 later on. Lab work showed normal WBC count, hemoglobin elevated 18.0, hematocrit elevated 51, normal coagulation panel, sodium low 129, chloride low 95, normal sodium, creatinine 0.38, calcium elevated 10.6, glucose 119, troponin negative, BNP 864. Chest x- ray showed no acute process but did reveal cardiomegaly and COPD changes. EKG showed sinus rhythm, QTc 375, ST depression in lead II, 3, aVF. Patient will admitted for hypertensive emergency with cardiology consulted. 03/01: Patient seen examined at bedside, no acute events overnight, denies any new episodes of chest pain, denies shortness of breath. Her CBC is unremarkable now with slightly elevated hemoglobin of 15.8 but improved with IV hydration, sodium improved to 130s, calcium normalized, creatinine remained normal. LDL 110, TSH normal 1.8, A1c 6.2.. Cardiology cleared patient for discharge with outpatient follow-up and outpatient echo. Patient's ASCVD score 14%, will be sent home on Lipitor 40, aspirin 81, for blood pressure control is prescribed with lisinopril hydrochlorothiazide 10/12.5, Lopressor 25 p.o. twice daily. Prediabetes recommendations provided, diet recommendations provided, encouraged to check blood pressure regularly Of note, her back pain started improving with lidocaine patch. Recommend gentle stretching, topical Voltaren gel, lidocaine patch [id number] at home. Patient seen and examined at bedside. Vital signs reviewed and stable. General: Nontoxic, no distress, appears at stated age Derm: Warm, dry Head: Atraumatic, normocephalic, symmetric Eyes: EOMI, no lid lag, anicteric sclera Mouth: No lip lesion, mucus membranes moist Cardiovascular: S1S2 reg, no murmur Lungs: CTA bilateral, no rhonchi, no rales, no accessory muscle use Abdominal: Soft, nontender to palpation, no guarding, no appreciable organomegaly Ext: No gross muscle atrophy, no edema, no contractures Neuro: CN II-XI grossly intact, no focal neuro deficits Psych: Alert, oriented, appropriate affect A total of 40 minutes of time were spent preparing this complex discharge summary. Patient was discharged on 03/01/2025. Patient Condition at Discharge: Stable Plan - Discharge Summary New Discharge Prescriptions: New Atorvastatin [Lipitor] 40 mg PO HS #30 tab Nitroglycerin Sl Tabs [Nitrostat] 0.4 mg SUBLINGUAL Q10M PRN #30 tab PRN Reason: Chest Pain Lisinopril-Hctz 10-12.5 mg [Zestoretic 10-12.5] 1 each PO DAILY #30 tab Aspirin 81 mg PO DAILY #30 tab Metoprolol Tartrate [Lopressor] 25 mg PO BID #30 tab Pantoprazole [Protonix] 40 mg PO AC-BRKFST #30 tab Continue Naproxen [Naprosyn] 500 mg PO BID Discharge Medication List Naproxen [Naprosyn] 500 mg PO BID 02/28/25 [History] Aspirin 81 mg PO DAILY #30 tab 03/01/25 [Rx] Atorvastatin [Lipitor] 40 mg PO HS #30 tab 03/01/25 [Rx] Lisinopril-Hctz 10-12.5 mg [Zestoretic 10-12.5] 1 each PO DAILY #30 tab 03/01/25 [Rx] Metoprolol Tartrate [Lopressor] 25 mg PO BID #30 tab 03/01/25 [Rx] Nitroglycerin Sl Tabs [Nitrostat] 0.4 mg SUBLINGUAL Q10M PRN #30 tab 03/01/25 [Rx] Pantoprazole [Protonix] 40 mg PO AC-BRKFST #30 tab 03/01/25 [Rx] Follow up Appointment(s)/Referral(s): Juancho Burr MD [STAFF PHYSICIAN] - 1 Week Rivera Jason DO [Primary Care Provider] - 1-2 days Patient Instructions/Handouts: Chest Pain (DC), Prediabetes (GEN) Activity/Diet/Wound Care/Special Instructions: Please, follow-up with your primary care physician, follow-up with cardiology. 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 Take your medications as prescribed. If you notice that your blood pressure is consistently below 110s upper reading, please, notify your primary care provider. Make sure you stay hydrated. Follow DASH diet, recommend sodium restriction 2 g/day, avoid frozen meals, canned food, fast food, check food labels for sodium content You are in prediabetes now, please, watch your carb intake, recommend prediabetes classes that you can discuss with your PCP
--- NOTE | 2025-03-01 11:52 | P.CRDCN ---
History of Present Illness History of present illness: HISTORY OF PRESENT ILLNESS: This is a 64-year-old female with no significant past medical history. Patient does not follow with a professional healthcare representative. We have been asked to see the patient in consultation for chest pain and hypertension. Patient examined at the bedside. Patient presented to the hospital for chief complaint of hypertension. Patient states she does not have a known history of hypertension. She reports having some mild chest discomfort. She states that her back has been hurting for the past couple days after she injured it and she has been taking Aleve. Patient's blood pressures were found to be greater than 200 systolic upon admission to the hospital. She states her blood pressure is usually normal. She is a current cigarette smoker and smokes half a pack per day. REVIEW OF SYSTEMS: At the time of my exam: CONSTITUTIONAL: Denies fever or chills. HEENT: Denies blurred vision, vision changes, or eye pain. Denies hemoptysis CARDIOVASCULAR: Denies chest pain. Denies orthopnea. Denies PND. Denies palpitations RESPIRATORY: Denies shortness of breath. GASTROINTESTINAL: Denies abdominal pain. Denies nausea or vomiting. HEMATOLOGIC: Denies bleeding disorders. GENITOURINARY: Denies any blood in urine. SKIN: Denies pruitis. Denies rash. PHYSICAL EXAM: VITAL SIGNS: Reviewed. GENERAL: Well-developed in no acute distress. HEENT: Head is normocephalic. Pupils are equal, round. Sclerae anicteric. Mucous membranes of the mouth are moist. Neck supple. No JVD or thyromegaly LUNGS: Respirations even and unlabored. Lungs essentially clear to auscultation bilaterally. HEART: Regular rate and rhythm. S1 and S2 heard. ABDOMEN: Soft. Nondistended. Nontender. EXTREMITIES: Normal range of motion. No clubbing or cyanosis. Peripheral pulses intact. No lower extremity edema NEUROLOGIC: Awake and alert. Oriented x 3. ASSESSMENT: Chest pain, troponin negative x 3 Hypertensive emergency, resolved PLAN: Patient has been started on lisinoprilhydrochlorothiazide and metoprolol per primary medicine Patient also started on aspirin and Lipitor per primary medicine May obtain echocardiogram on an outpatient basis Patient is stable for discharge home today from a cardiac standpoint Patient to follow-up postdischarge in the office with Dr. Burr Nurse practitioner note has been reviewed by physician. Signing provider agrees with the documented findings, assessment, and plan of care documented by ENROLLMENT CONSULTANT as a scribe. Past Medical History Past Medical History: No Reported History History of Any Multi-Drug Resistant Organisms: MRSA Date of last positivie culture/infection: 2007 MDRO Source:: KNEE Past Surgical History: No Surgical Hx Reported Past Psychological History: Depression Smoking Status: Current every day smoker Past Alcohol Use History: Daily Past Drug Use History: None Reported Medications and Allergies Home Medications Medication Instructions Recorded Confirmed Type Naproxen [Naprosyn] 500 mg PO BID 02/28/25 02/28/25 History Aspirin 81 mg PO DAILY #30 tab 03/01/25 Rx Atorvastatin [Lipitor] 40 mg PO HS #30 tab 03/01/25 Rx Lisinopril-Hctz 10-12.5 mg 1 each PO DAILY #30 tab 03/01/25 Rx [Zestoretic 10-12.5] Metoprolol Tartrate [Lopressor] 25 mg PO BID #30 tab 03/01/25 Rx Nitroglycerin Sl Tabs [Nitrostat] 0.4 mg SUBLINGUAL Q10M PRN #30 tab 03/01/25 Rx Pantoprazole [Protonix] 40 mg PO AC-BRKFST #30 tab 03/01/25 Rx Allergies Allergy/AdvReac Type Severity Reaction Status Date / Time codeine AdvReac Nausea & Verified 02/28/25 14:46 Vomiting PLASTIC BANDAGES Allergy Rash/Hives Uncoded 02/28/25 14:46 Physical Exam Vitals: Vital Signs Temp Pulse Pulse Resp BP BP Pulse Ox 03/01/25 02:00 98.1 F 50 L 124/65 99 02/28/25 21:04 98.2 F 58 L 16 145/72 96 02/28/25 20:09 98.2 F 66 20 126/73 97 02/28/25 19:07 70 17 136/69 97 02/28/25 16:03 79 19 178/78 96 02/28/25 15:07 98.4 F 83 18 185/92 97 02/28/25 14:17 88 18 208/103 98 02/28/25 12:28 97.7 F 81 18 212/95 99 Intake and Output 02/28/25 03/01/25 03/01/25 22:59 06:59 14:59 Other: Weight 75.296 kg Results 03/01/25 06:45 03/01/25 06:45 Cardiac Enzymes 02/28/25 02/28/25 02/28/25 Range/Units 14:11 14:11 17:12 AST 32 (14-36) U/L Troponin I <0.012 0.012 (0.000-0.034) ng/mL 02/28/25 Range/Units 20:01 AST (14-36) U/L Troponin I <0.012 (0.000-0.034) ng/mL Coagulation 02/28/25 Range/Units 14:11 PT 10.6 (10.0-12.5) sec APTT 23.6 (22.0-30.0) sec Lipids 02/28/25 Range/Units 17:12 Triglycerides 77.80 (0.00-149.00) mg/dL Cholesterol 194.00 (0.00-200.00) mg/dL HDL Cholesterol 68.00 H (40.00-60.00) mg/dL Cholesterol/HDL Ratio 2.85 Ratio CBC 02/28/25 03/01/25 Range/Units 13:37 06:45 WBC 8.41 7.07 (4.50-10.00) 10*3/uL RBC 5.86 H 5.16 (4.10-5.20) 10*6/uL Hgb 18.0 H 15.8 H (12.0-15.0) g/dL Hct 51.0 H 45.3 (37.2-46.3) % Plt Count 415 394 (140-440) 10*3/uL Comprehensive Metabolic Panel 02/28/25 03/01/25 Range/Units 14:11 06:45 Sodium 129 L 130 L (137-145) mmol/L Potassium 4.7 4.4 (3.5-5.1) mmol/L Chloride 95 L 100 (98-107) mmol/L Carbon Dioxide 21 L 21 L (22-30) mmol/L BUN 7 8 (7-17) mg/dL Creatinine 0.34 L 0.41 L (0.52-1.04) mg/dL Glucose 119 H 113 H (74-99) mg/dL Calcium 10.6 H 9.8 (8.4-10.2) mg/dL AST 32 (14-36) U/L ALT 28 (4-34) U/L Alkaline Phosphatase 101 (38-126) U/L Total Protein 7.8 (6.3-8.2) g/dL Albumin 4.8 (3.5-5.0) g/dL Current Medications Generic Name Dose Route Start Last Admin Trade Name Freq PRN Reason Stop Dose Admin Aspirin 81 mg 03/01/25 09:00 03/01/25 08:09 Aspirin 81 Mg PO 81 mg DAILY LUCY Administration Atorvastatin Calcium 40 mg 02/28/25 21:00 02/28/25 20:36 Atorvastatin 40 Mg Tab PO 40 mg HS LUCY Administration Enoxaparin Sodium 40 mg 03/01/25 09:00 03/01/25 08:12 Enoxaparin 40 Mg/0.4 Ml Syringe SQ Not Given DAILY LUCY Lisinopril/HCTZ 1 each 02/28/25 17:30 03/01/25 08:09 Lisinopril-Hctz 10-12.5 Mg 1 Each Tab PO 1 each DAILY LUCY Administration Lidocaine 1 patch 02/28/25 18:45 03/01/25 08:07 Lidocaine 4% Patch TOPICAL 1 patch DAILY [facility] Administration Protocol Metoprolol Tartrate 25 mg 02/28/25 21:00 03/01/25 08:15 Metoprolol Tartrate 25 Mg Tab PO Not Given BID LUCY Naloxone HCl 0.2 mg 02/28/25 15:49 Naloxone 0.4 Mg/Ml 1 Ml Vial IV Q2M PRN Opioid Reversal Naproxen 500 mg 02/28/25 21:00 03/01/25 08:10 Naproxen 250 Mg Tab PO 500 mg BID LUCY Administration Nitroglycerin 0.4 mg 02/28/25 17:11 Nitroglycerin Sl Tabs 0.4 Mg Tab SUBLINGUAL Q10M PRN Chest Pain Pantoprazole Sodium 40 mg 03/01/25 07:30 03/01/25 06:25 Pantoprazole 40 Mg Tablet PO 40 mg AC-BRKFST LUCY Administration Intake and Output 02/28/25 03/01/25 03/01/25 22:59 06:59 14:59 Other: Weight 75.296 kg 03/01/25 06:45 03/01/25 06:45
--- NOTE | 2025-03-01 12:40 | CA ---
Transthoracic Echo Report Name: Virginia Morris Age: 64 Gender: F : 1960 Exam Date: 03/01/2025 08:36 Exam Location: [facility] Ht (in): 60 Wt (lb): 166 Ordering Physician: Danielle Teague DO Attending/Referring Phys: [id number], [employer] Yady Miramontes RD Procedure CPT: Indications: cardiomegaly, chest pain Cardiac Hx: Technical Quality: Fair Contrast 1: Total Dose (mL): Contrast 2: Total Dose (mL): MEASUREMENTS (Male / Female) Normal Values 2D ECHO LV Diastolic Diameter PLAX 4.5 cm 4.2 - 5.9 / 3.9 - 5.3 cm LV Systolic Diameter PLAX 2.6 cm IVS Diastolic Thickness 1.2 cm 0.6 - 1.0 / 0.6 - 0.9 cm LVPW Diastolic Thickness 1.2 cm 0.6 - 1.0 / 0.6 - 0.9 cm LV Relative Wall Thickness 0.5 RV Internal Dim ED PLAX 2.6 cm LVOT Diameter 1.9 cm LA Systolic Diameter LX 3.2 cm 3.0 - 4.0 / 2.7 - 3.8 cm LV Diastolic Volume MOD BP 67.2 cm??? 67 - 155 / 56 - 104 cm??? LV Systolic Volume MOD BP 27.2 cm??? 22 - 58 / 19 - 49 cm??? LV Ejection Fraction MOD BP 59.5 % >= 55 % LV Cardiac Index MOD BP 1276.7 cm???/min???m??? LV Diastolic Volume MOD 4C 78.3 cm??? LV Systolic Volume MOD 4C 25.4 cm??? LV Ejection Fraction MOD 4C 67.6 % LV Cardiac Index MOD 4C 1687.9 cm???/min???m??? LV Diastolic Length 4C 7.1 cm LV Systolic Length 4C 6.0 cm LV Diastolic Volume MOD 2C 54.9 cm??? LV Systolic Volume MOD 2C 27.4 cm??? LV Ejection Fraction MOD 2C 50.1 % LV Cardiac Index MOD 2C 876.8 cm???/min???m??? LV Diastolic Length 2C 6.7 cm LV Systolic Length 2C 5.6 cm LA Volume 37.7 cm??? 18 - 58 / 22 - 52 cm??? LA Volume Index 20.7 cm???/m??? 16 - 28 cm???/m??? Ascending Aorta Diameter 2.8 cm M-MODE Aortic Root Diameter MM 2.5 cm AV Cusp Separation MM 1.9 cm DOPPLER AV Peak Velocity 189.6 cm/s AV Peak Gradient 14.4 mmHg AV Mean Velocity 117.9 cm/s AV Mean Gradient 7.0 mmHg AV Velocity Time Integral 42.4 cm LVOT Peak Velocity 66.5 cm/s LVOT Peak Gradient 1.8 mmHg LVOT Velocity Time Integral 30.9 cm LVOT Stroke Volume 84.1 cm??? LVOT Stroke Volume Index 48.8 ml/m??? LVOT Cardiac Index 2684.1 cm???/min???m??? AV Area Cont Eq vti 2.0 cm??? AV Area Cont Eq pk 1.0 cm??? MV Area PHT 2.6 cm??? Mitral E Point Velocity 74.5 cm/s Mitral A Point Velocity 53.5 cm/s Mitral E to A Ratio 1.4 MV Deceleration Time 294.6 ms TR Peak Velocity 247.8 cm/s TR Peak Gradient 24.6 mmHg Right Ventricular Systolic Press 29.2 mmHg FINDINGS Left Ventricle Left ventricular ejection fraction is estimated at 55-60%. Mildly increased septal wall thickness. Mildly increased posterior wall thickness. Normal left ventricular systolic function with no obvious regional wall motion abnormalities. Left ventricular cavity size normal. Right Ventricle Normal right ventricular size and function. Right Atrium Normal right atrial size. No right atrial thrombus or mass seen. Left Atrium Normal left atrial size. No left atrial thrombus or mass present. Mitral Valve Mitral valve thickened. No mitral regurgitation. No mitral stenosis. Aortic Valve Question Bicuspid valve vs tricuspid valvevs sclerosis. No aortic stenosis. No aortic regurgitation. Tricuspid Valve Structurally normal tricuspid valve. Mild tricuspid regurgitation. Pulmonic Valve Pulmonic valve not well visualized. No pulmonic regurgitation. Pericardium Minimal pericardial effusion no pleural effusion. Aorta Normal size aortic root and proximal ascending aorta. CONCLUSIONS Normal LV systolic function Previewed by: Dr. Juancho Burr MD (Electronically Signed) Final Date: 01 March 2025 12:39
== END 2025-03-01 12:34 | disposition home or self-care (01) ==
LOC: EC 12:27 → 1SOBS 15:55
PROVIDERS: ADMIT Student in an Organized Health Care Education/Training Program; ATTEND Student in an Organized Health Care Education/Training Program
DX: I16.1 Hypertensive emergency (principal); I10 Essential (primary) hypertension; D75.1 Secondary polycythemia; E83.52 Hypercalcemia; E86.0 Dehydration; E87.1 Hypo-osmolality and hyponatremia; E87.8 Other disorders of electrolyte and fluid balance, not elsewhere classified; M54.50 Low back pain, unspecified; F17.210 Nicotine dependence, cigarettes, uncomplicated; Z88.5 Allergy status to narcotic agent; Z79.1 Long term (current) use of non-steroidal anti-inflammatories (NSAID)
CPT/HCPCS: 99285; 36415; 93005; 93306; 84300; 83930; 83880; 80061; 80053; 80048; 84443; 83690; 83735; 84484; 85025 ×2; 85610; 85730; 81001; 83935; 83036; 71046; G0378 ×2

== ENCOUNTER 2025-03-08 12:44 | Inpatient (IN) | payer BC ==
[2025-03-08] MEDS: ORPHENADRINE 30 MG/ML 2 ML VIAL IM STA (13:22)
[2025-03-08] MEDS: KETOROLAC 15 MG/ML 1 ML VIAL IM STA (13:22)
[2025-03-08] MEDS: LIDOCAINE 4% PATCH TOPICAL ONE (13:27)
[2025-03-08] MEDS: MORPHINE SULFATE 4 MG/ML SYRINGE IM STA (14:21)
--- NOTE | 2025-03-08 14:22 | ED ---
Back Pain HPI - General Chief Complaint: Back Pain/Injury Stated Complaint: Back Pain Time Seen by Provider: 03/08/25 12:58 Source: patient, RN notes reviewed Mode of arrival: ambulatory Limitations: no limitations - History of Present Illness Initial Comments: This is a 64-year-old female who presents to the emergency department for back pain. Patient states that for the last couple of weeks she has been dealing with upper and right sided back pain. She has also noticed her blood pressure to be elevated. Pain is worse when she tries to press on the area or move. She has been to urgent care and followed up with her primary care provider who had been treating her for a muscle strain. She has gotten some improvement with muscle relaxers, but states that the pain is still prominent. She was also admitted to this facility recently for hypertension and cardiac rule out. Believes that laying on the stretcher for a long period of time made the pain even worse. Denies any chest pain or shortness of breath. MD Complaint: back pain - Related Data Home Medications Medication Instructions Recorded Confirmed Cyclobenzaprine [Flexeril] 10 mg PO TID 03/08/25 03/08/25 Lisinopril-Hctz 10-12.5 mg 1 tab PO DAILY 03/08/25 03/08/25 [Zestoretic 10-12.5] predniSONE See Taper PO DAILY 03/08/25 03/08/25 Previous Rx's Medication Instructions Recorded Aspirin 81 mg PO DAILY #30 tab 03/01/25 Atorvastatin [Lipitor] 40 mg PO HS #30 tab 03/01/25 Metoprolol Tartrate [Lopressor] 25 mg PO BID #30 tab 03/01/25 Nitroglycerin Sl Tabs [Nitrostat] 0.4 mg SUBLINGUAL Q10M PRN #30 tab 03/01/25 Pantoprazole [Protonix] 40 mg PO AC-BRKFST #30 tab 03/01/25 Allergies Allergy/AdvReac Type Severity Reaction Status Date / Time codeine AdvReac Nausea & Verified 03/08/25 19:04 Vomiting PLASTIC BANDAGES Allergy Rash/Hives Uncoded 03/08/25 19:04 Review of Systems ROS Statement: Those systems with pertinent positive or pertinent negative responses have been documented in the HPI. ROS Other: All systems not noted in ROS Statement are negative. Past Medical History Past Medical History: No Reported History History of Any Multi-Drug Resistant Organisms: MRSA Date of last positivie culture/infection: 2007 MDRO Source:: KNEE Past Surgical History: No Surgical Hx Reported Past Psychological History: Depression Smoking Status: Current every day smoker Past Alcohol Use History: Daily Past Drug Use History: None Reported General Exam Limitations: no limitations General appearance: alert, in no apparent distress Head exam: Present: atraumatic, normocephalic, normal inspection Respiratory exam: Present: normal lung sounds bilaterally. Absent: respiratory distress, wheezes, rales, rhonchi, stridor Cardiovascular Exam: Present: regular rate, normal rhythm Back exam: Present: other (Tenderness to palpation of the right upper back just behind the right shoulder) Neurological exam: Present: alert, oriented X3, CN II-XII intact Psychiatric exam: Present: normal affect, normal mood Skin exam: Present: warm, dry, intact, normal color. Absent: rash Course Vital Signs 03/08/25 03/08/25 03/08/25 12:47 16:54 19:38 Temperature 97.4 F L 98.0 F 97.7 F Pulse Rate 76 50 L 68 Respiratory 16 20 16 Rate Blood Pressure 154/77 148/73 117/56 O2 Sat by Pulse 99 99 97 Oximetry 03/08/25 21:26 Temperature 97.9 F Pulse Rate 62 Respiratory 17 Rate Blood Pressure 108/59 O2 Sat by Pulse 95 Oximetry Medical Decision Making - Medical Decision Making This is a 64-year-old female who presents to the emergency department for back pain. Was pt. sent in by a medical professional or institution? @ -No Did you speak to anyone other than the patient for history? @ -No Did you review nursing and triage notes? @ -Yes, and I agree, it is accurate with regards to the patient's symptoms. Were old charts reviewed? @ -No Differential Diagnosis? @ -Differential Back Pain: Strain, zoster, cauda equina syndrome, epidural abscess, vertebral osteomyelitis, discitis, fracture, subluxation, disc herniation, DJD, spinal stenosis, dissection, AAA, pancreatitis, peptic ulcer disease, pyelonephritis, kidney stone, this is not meant to be an all-inclusive list. EKG interpreted by me (3pts min.)? @ -EKG interpreted by me demonstrating the following: Sinus rhythm. Ventricular rate 62 bpm, NM interval 164 ms, QRS duration 93 ms, QTc 393 ms. X-rays interpreted by me (1pt min.)? @ -Not obtained CT interpreted by me (1pt min.)? @ -CTA of the chest obtained. My interpretation identifies no evidence of a pulmonary embolus. U/S interpreted by me (1pt. min.)? @ -Not obtained What testing was considered but not performed? (CT, X-rays, U/S, labs)? Why? @ -None What meds were considered but not given? Why? @ -None Did you discuss the management of the patient with other professionals? @ -Yes, Dr. Bell, who accepts the patient for admission. Did you reconcile home meds? @ -No Was smoking cessation discussed for >3mins.? @ -I discussed smoking cessation for greater than 3 minutes. The risk of smoking were discussed with the patient including but not limited to risks of cancer, stroke, coronary artery disease and COPD. Also discussed with patient were multiple methods of quitting smoking. Lastly we discussed the financial cost of smoking. Was critical care preformed (if so, how long)? @ -No Were there social determinants of health that impacted care today? How? (Homelessness, low income, unemployed, alcoholism, drug addiction, transportation, low edu. Level, literacy, decrease access to med. care, fdc, rehab)? @ -No Was there de-escalation of care discussed even if they declined? (Discuss DNR or withdrawal of care, Hospice)? @ -No What co-morbidities impacted this encounter? (DM, HTN, Smoking, COPD, CAD, Cancer, CVA, Hep., AIDS, mental health diagnosis, sleep apnea, morbid obesity)? @ -Smoking Was patient admitted / discharged? @ -Admitted. When the patient arrived she was complaining of back pain which was relatively reproducible. While this was thought to be musculoskeletal, I had initially offered laboratory studies to rule out irregularities like a pulmonary embolus, however she requested to to start with medication. Medication was administered and she had some improvement in symptoms, however s he later requested to proceed with laboratory studies. D-dimer was found to be mildly elevated at 0.68. However, labs then demonstrated hyponatremia with a sodium of 113. This was noted to be hemolyzed and repeat labs were sent. Hyponatremia was still present and critically low at 115. Findings discussed with the patient. She does admit to occasional headaches and nausea. Also reports that she is clumsy when she walks, however this has been ongoing. The cause of her hyponatremia is not clear at this point. She was started on several new medications following discharge a few days ago and has been restricting sodium intake. CTA of the chest was also obtained due to the elevated D-dimer with back pain. No evidence of a pulmonary embolus was identified. With her current sodium levels patient will be admitted to medicine for hyponatremia. 1L of normal saline administered in the emergency department. Serum and urine osmolality ordered as well as a urinalysis with results pending at the time of admission. Consult placed to nephrology. Case discussed with ED attending, Dr. Anthony. Undiagnosed new problem with uncertain prognosis? @ -None Drug Therapy requiring intensive monitoring for toxicity (Heparin, Nitro, Insulin, Cardizem)? @ -None Were any procedures done? @ -None Diagnosis/symptom? @ -Hyponatremia Acute, or Chronic, or Acute on Chronic? @ -Acute Uncomplicated (without systemic symptoms) or Complicated (systemic symptoms)? @ -Uncomplicated Side effects of treatment? @ -None Exacerbation, Progression, or Severe Exacerbation] @ -Not applicable Poses a threat to life or bodily function? @ -Yes - Lab Data Result diagrams: 03/09/25 08:19 03/09/25 08:19 Lab Results 03/08/25 03/08/25 03/08/25 Range/Units 15:30 15:30 15:30 WBC 10.17 H (4.50-10.00) 10*3/uL RBC 5.79 H (4.10-5.20) 10*6/uL Hgb 18.1 H (12.0-15.0) g/dL Hct 47.6 H (37.2-46.3) % MCV 82.2 D (80.0-97.0) fL MCH 31.3 (27.0-32.0) pg MCHC 38.0 H (32.0-37.0) g/dL Plt Count 381 (140-440) 10*3/uL MPV 10.9 (9.5-12.2) fL Immature Gran % (Auto) 0.7 % Neutrophils % 85.7 % Lymphocytes % 10.1 % Monocytes % 3.3 % Eosinophils % 0.0 % Basophils % 0.2 % Immature Gran # 0.07 H (0.00-0.04) 10*3/uL Neutrophils # 8.71 H (1.80-7.70) 10*3/uL Lymphocytes # 1.03 (0.90-5.00) 10*3/uL Monocytes # 0.34 (0.20-1.00) 10*3/uL Eosinophils # 0.00 L (0.04-0.35) 10*3/uL Basophils # 0.02 (0.00-0.10) 10*3/uL D-Dimer 0.68 H (<0.60) mg/L FEU Sodium 113 L* (137-145) mmol/L Potassium 5.7 H (3.5-5.1) mmol/L Chloride 82 L (98-107) mmol/L Carbon Dioxide 13 L (22-30) mmol/L Anion Gap 18 mmol/L BUN 11 (7-17) mg/dL Creatinine 0.33 L (0.52-1.04) mg/dL Est GFR (CKD-EPI)AfAm >90 (>60 ml/min/1.73 sqM) Est GFR (CKD-EPI)NonAf >90 (>60 ml/min/1.73 sqM) Glucose 145 H (74-99) mg/dL Osmolality (275-295) mOsm/kg Calcium 10.0 (8.4-10.2) mg/dL Total Bilirubin 1.2 (0.2-1.3) mg/dL AST 48 H (14-36) U/L ALT 35 H (4-34) U/L Alkaline Phosphatase 130 H (38-126) U/L Total Protein 8.2 (6.3-8.2) g/dL Albumin 5.1 H (3.5-5.0) g/dL Urine Color Urine Appearance (Clear) Urine pH (5.0-8.0) Ur Specific [place] (1.001-1.035) Urine Protein (Negative) Urine Glucose (UA) (Negative) Urine Ketones (Negative) Urine Blood (Negative) Urine Nitrite (Negative) Urine Bilirubin (Negative) Urine Urobilinogen (<2.0) mg/dL Ur Leukocyte Esterase (Negative) Urine RBC (0-5) /hpf Urine WBC (0-5) /hpf Ur Squamous Epith Cells (0-4) /hpf Urine Osmolality (50-1200) mOsm/kg 03/08/25 03/08/25 03/08/25 Range/Units 16:52 17:39 17:39 WBC (4.50-10.00) 10*3/uL RBC (4.10-5.20) 10*6/uL Hgb (12.0-15.0) g/dL Hct (37.2-46.3) % MCV (80.0-97.0) fL MCH (27.0-32.0) pg MCHC (32.0-37.0) g/dL Plt Count (140-440) 10*3/uL MPV (9.5-12.2) fL Immature Gran % (Auto) % Neutrophils % % Lymphocytes % % Monocytes % % Eosinophils % % Basophils % % Immature Gran # (0.00-0.04) 10*3/uL Neutrophils # (1.80-7.70) 10*3/uL Lymphocytes # (0.90-5.00) 10*3/uL Monocytes # (0.20-1.00) 10*3/uL Eosinophils # (0.04-0.35) 10*3/uL Basophils # (0.00-0.10) 10*3/uL D-Dimer (<0.60) mg/L FEU Sodium 115 L* (137-145) mmol/L Potassium 5.0 (3.5-5.1) mmol/L Chloride 80 L (98-107) mmol/L Carbon Dioxide 22 (22-30) mmol/L Anion Gap 13 mmol/L BUN 12 (7-17) mg/dL Creatinine 0.36 L (0.52-1.04) mg/dL Est GFR (CKD-EPI)AfAm >90 (>60 ml/min/1.73 sqM) Est GFR (CKD-EPI)NonAf >90 (>60 ml/min/1.73 sqM) Glucose 143 H (74-99) mg/dL Osmolality (275-295) mOsm/kg Calcium 10.5 H (8.4-10.2) mg/dL Total Bilirubin (0.2-1.3) mg/dL AST (14-36) U/L ALT (4-34) U/L Alkaline Phosphatase (38-126) U/L Total Protein (6.3-8.2) g/dL Albumin (3.5-5.0) g/dL Urine Color Colorless Urine Appearance Clear (Clear) Urine pH 7.0 (5.0-8.0) Ur Specific [place] 1.049 H (1.001-1.035) Urine Protein Negative (Negative) Urine Glucose (UA) Negative (Negative) Urine Ketones Trace H (Negative) Urine Blood Negative (Negative) Urine Nitrite Negative (Negative) Urine Bilirubin Negative (Negative) Urine Urobilinogen <2.0 (<2.0) mg/dL Ur Leukocyte Esterase Moderate H (Negative) Urine RBC 3 (0-5) /hpf Urine WBC 12 H (0-5) /hpf Ur Squamous Epith Cells 6 H (0-4) /hpf Urine Osmolality 239 (50-1200) mOsm/kg 03/08/25 03/08/25 Range/Units 17:39 18:31 WBC (4.50-10.00) 10*3/uL RBC (4.10-5.20) 10*6/uL Hgb (12.0-15.0) g/dL Hct (37.2-46.3) % MCV (80.0-97.0) fL MCH (27.0-32.0) pg MCHC (32.0-37.0) g/dL Plt Count (140-440) 10*3/uL MPV (9.5-12.2) fL Immature Gran % (Auto) % Neutrophils % % Lymphocytes % % Monocytes % % Eosinophils % % Basophils % % Immature Gran # (0.00-0.04) 10*3/uL Neutrophils # (1.80-7.70) 10*3/uL Lymphocytes # (0.90-5.00) 10*3/uL Monocytes # (0.20-1.00) 10*3/uL Eosinophils # (0.04-0.35) 10*3/uL Basophils # (0.00-0.10) 10*3/uL D-Dimer (<0.60) mg/L FEU Sodium 121 L (137-145) mmol/L Potassium (3.5-5.1) mmol/L Chloride (98-107) mmol/L Carbon Dioxide (22-30) mmol/L Anion Gap mmol/L BUN (7-17) mg/dL Creatinine (0.52-1.04) mg/dL Est GFR (CKD-EPI)AfAm (>60 ml/min/1.73 sqM) Est GFR (CKD-EPI)NonAf (>60 ml/min/1.73 sqM) Glucose (74-99) mg/dL Osmolality 260 L (275-295) mOsm/kg Calcium (8.4-10.2) mg/dL Total Bilirubin (0.2-1.3) mg/dL AST (14-36) U/L ALT (4-34) U/L Alkaline Phosphatase (38-126) U/L Total Protein (6.3-8.2) g/dL Albumin (3.5-5.0) g/dL Urine Color Urine Appearance (Clear) Urine pH (5.0-8.0) Ur Specific [place] (1.001-1.035) Urine Protein (Negative) Urine Glucose (UA) (Negative) Urine Ketones (Negative) Urine Blood (Negative) Urine Nitrite (Negative) Urine Bilirubin (Negative) Urine Urobilinogen (<2.0) mg/dL Ur Leukocyte Esterase (Negative) Urine RBC (0-5) /hpf Urine WBC (0-5) /hpf Ur Squamous Epith Cells (0-4) /hpf Urine Osmolality (50-1200) mOsm/kg - Radiology Data Radiology results: report reviewed, image reviewed Disposition Clinical Impression: Hyponatremia Disposition: ADMITTED IP TO THIS HOSP
[2025-03-08 15:46] LABS: Basophils # (A) 0.02 10*3/uL (0.00-0.10); Basophils % (A) 0.2 %; Eosinophils # (A) 0.00 10*3/uL (0.04-0.35); Eosinophils % (A) 0.0 %; HCT 47.6 % (37.2-46.3); HGB 18.1 g/dL (12.0-15.0); Lymphocytes # (A) 1.03 10*3/uL (0.90-5.00); Lymphocytes % (A) 10.1 %; MCH 31.3 pg (27.0-32.0); MCHC 38.0 g/dL (32.0-37.0); Monocytes # (A) 0.34 10*3/uL (0.20-1.00); Monocytes % (A) 3.3 %; Neutrophils # (A) 8.71 10*3/uL (1.80-7.70); Neutrophils % (A) 85.7 %; Platelet Count 381 10*3/uL (140-440); RBC 5.79 10*6/uL (4.10-5.20); RDW 11.6 % (11.5-14.5); WBC 10.17 10*3/uL (4.50-10.00)
[2025-03-08 15:50] LABS: MCV 82.2 fL (80.0-97.0)
[2025-03-08 16:34] LABS: African American GFR (CKD) >90 (>60 ml/min/1.73 sqM); Albumin 5.1 g/dL (3.5-5.0); Anion Gap 18 mmol/L; Blood Urea Nitrogen 11 mg/dL (7-17); Calcium 10.0 mg/dL (8.4-10.2); Carbon Dioxide 13 mmol/L (22-30); Chloride 82 mmol/L (98-107); Glucose 145 mg/dL (74-99); Non-African American GFR(CKD) >90 (>60 ml/min/1.73 sqM); Total Protein 8.2 g/dL (6.3-8.2)
[2025-03-08 16:38] LABS: ALT 35 U/L (4-34); AST 48 U/L (14-36); Alkaline Phosphatase 130 U/L (38-126); Potassium 5.7 mmol/L (3.5-5.1)
[2025-03-08 16:40] LABS: Sodium 113 mmol/L (137-145)
[2025-03-08 17:14] LABS: African American GFR (CKD) >90 (>60 ml/min/1.73 sqM); Anion Gap 13 mmol/L; Blood Urea Nitrogen 12 mg/dL (7-17); Calcium 10.5 mg/dL (8.4-10.2); Carbon Dioxide 22 mmol/L (22-30); Chloride 80 mmol/L (98-107); Glucose 143 mg/dL (74-99); Non-African American GFR(CKD) >90 (>60 ml/min/1.73 sqM)
[2025-03-08 17:24] LABS: Potassium 5.0 mmol/L (3.5-5.1); Sodium 115 mmol/L (137-145)
--- NOTE | 2025-03-08 17:27 | CT ---
EXAMINATION TYPE: CT chest angio for PE CT DLP: 290.1 mGycm, Automated exposure control for dose reduction was used. DATE OF EXAM: 03/08/2025 5:07 PM COMPARISON: Chest radiograph 02/28/2025 CLINICAL INDICATION:Female, 64 years old with history of Back pain, elevated d-dimer; Elevated D-dime r. CP. TECHNIQUE/CONTRAST: CTA scan of the thorax is performed with IV Contrast, patient injected with 100 ml mL of Isovue 370, pulmonary embolism protocol. MIP images are created and reviewed. FINDINGS: Pulmonary Artery: There is no evidence for a central filling defect within the pulmonary vasculature to suggest acute pulmonary embolism. Limited evaluation of the segmental and subsegmental branches se condary to bolus timing. The pulmonary artery is of normal size. Lungs/Pleura: Bilateral posterior fat filled Bochdalek hernias. No pleural effusion, pneumothorax or focal consolidation. Minimal bilateral lower lobe subsegmental atelectasis. Right upper lobe perihila r 8 mm solid pulmonary nodule (series 406, image 51). Airway: Large airways are patent. Heart: Size within normal limits.No pericardial effusion. No significant coronary artery calcificatio ns. Vasculature: No evidence of aortic aneurysm. No evidence for thoracic aortic dissection. Mediastinum: No gross evidence of adenopathy. Musculoskeletal: No acute osseous abnormalities. Multilevel degenerative disc disease. Prominent Schm orl's nodes involving the superior and inferior endplates of the L1 and T12 vertebral bodies. Soft Tissues: Unremarkable. Lower neck: No significant findings. Upper Abdomen: No significant findings. IMPRESSION: 1. No evidence of central pulmonary embolism. Limited evaluation of the segmental and subsegmental br anches due to poor bolus contrast timing. 2. Right upper lobe perihilar 8 mm pulmonary nodule. According to Fleischner criteria, follow-up CT c hest in 6-12 months is recommended. [facility], , 03/08/2025 5:25 PM
[2025-03-08] MEDS: SODIUM CHLORIDE 0.9% 1,000 ML IV ONE (17:46)
[2025-03-08 18:14] LABS: Bilirubin,Urine Negative (Negative); Blood,Urine Negative (Negative); Color,Urine Colorless; Glucose,Urine (UA) Negative (Negative); Ketones,Urine Trace (Negative); Leukocyte Esterase,Urine Moderate (Negative); Nitrite,Urine Negative (Negative); PH, Urine 7.0 (5.0-8.0); Protein,Urine Negative (Negative); RBC,Urine 3 /hpf (0-5); Squamous Epithelial Cell,Urine 6 /hpf (0-4); Urobilinogen,Urine <2.0 mg/dL (<2.0); WBC,Urine 12 /hpf (0-5)
[2025-03-08] MEDS ORDERED: NALOXONE 0.4 MG/ML 1 ML VIAL IV PRN (18:17)
[2025-03-08] MEDS ORDERED: ONDANSETRON 4 MG/2 ML VIAL IVP PRN (18:17)
[2025-03-08] MEDS ORDERED: ACETAMINOPHEN TAB 325 MG TAB PO PRN (18:17)
[2025-03-08 18:18] LABS: Specific Gravity,Urine 1.049 (1.001-1.035)
--- NOTE | 2025-03-08 22:15 | P.HPIM ---
History of Present Illness H&P Date: 03/08/25 Chief Complaint: back pain Patient is a 64-year-old female with a PMH of hypertension, hyperlipidemia who comes into the ED today for evaluation of right upper back pain. Patient stated she injured her lower back when she was moving furniture 3 weeks ago. After 1 week, she went to see her PCP for her back pain and in office her systolic BP was 180. A week later, she started having right upper back pain, described as constant painful spasms. Nonreproducible with palpation. Patient went to the ED for her back pain and her systolic BP was 211 at the time, and she was placed on lisinoprilhydrochlorothiazide medication. Patient stated that she has been prescribed muscle relaxant for the back pain, but it did not help with her symptoms.she also stated that she tried Biofreeze, massage, Tylenol with no relief. However she endorsed applying ice helps with pain relief. In the ED, her sodium levels were 113. Denied having history of hyponatremia. Described her diet as toast and eggs in the morning, meat and mashed potato in the afternoon. Denied avoiding salt in her diet. Denied chest pain, shortness of breath, headache, change in vision, weakness, numbness or tingling, fever or chills, constipation, diarrhea, abdominal pain. Imaging CTA chest Right upper lobe perihilar 8 mm pulmonary nodule Labs WBC 8.41, Hgb 18, HCT 51, PLT count 415 Na 129, K 4.7, Cl 95, CO2 21, BUN 7, Cr 0.34 Vitals T97.4, HR 76, RR 16, BP 154/77, O2 sat 99% on RA ED documentation reviewed. Review of systems: Pertinent positives and negatives as discussed in HPI, a complete review of systems was performed and all other systems are negative. Physical examination: Vital signs reviewed General Appearance: non toxic, no distress, alert and oriented x 3 Head: atraumatic, normocephalic Eyes: EOMI, anicteric sclera, pupils equal round reactive to light ENT: Nose and ears atraumatic Neck: supple Mouth: no lip lesion, mucus membranes moist Cardiovascular: S1S2 reg, no murmur, no edema Lungs: CTA bilateral, no rhonchi, no rales, no accessory muscle use Abdominal: soft, nontender to palpation, no guarding Ext: muscle strength 5 out of 5 in all 4 extremities grossly, no gross muscle atrophy, no deformity, tenderness Derm: no unusual rashes/lesions, warm Neuro: Motor and sensory function normal, no focal neuro deficits Psych: Mood and affect appropriate Assessment/Plan: #. Acute hyponatremia - Asymptomatic - In the ED, NA 113-115-121 - Monitor sodium levels closely - Given 1 L normal saline in the ED - Goal to correct hyponatremia by 5 to 8 mmol/L in 24 hours - Nephrology consulted - appreciate recommendations #. Acute right upper backache - Likely a muscle spasm - Restart home Flexeril - Control pain with medications, Lidocaine patch, ice packs #. Right perihilar pulmonary nodule - Nodule size 8 mm on CTA imaging - Recommendation is to follow-up with the CT chest in 6 to 12 months #. Primary hypertension - Resume lisinoprilHCTZ 1012.5, metoprolol tartrate 25 mg BID #. Hyperlipidemia - Resume atorvastatin 40 mg DVT prophylaxis: Lovenox 40 mg The patient is admitted with an anticipated venous than 2 midnight stay for evaluation of hyponatremia CODE STATUS: Full code Discussed with: Dr. Cantu Anticipated discharge place: Home Chanel Estrella MD PGY-1 IM Dictation was produced using [employer] dictation software. please excuse any grammatical, word or spelling errors. I have seen and evaluated the patient today. I Discussed the case with the resident and agree with the resident's findings I edited the assessment and plan as necessary as documented in the resident's note. ' goal to maintain Na level close to 120 over the next 24 hours Past Medical History Past Medical History: No Reported History History of Any Multi-Drug Resistant Organisms: MRSA Date of last positivie culture/infection: 2007 MDRO Source:: KNEE Past Surgical History: No Surgical Hx Reported Past Psychological History: Depression Smoking Status: Current every day smoker Past Alcohol Use History: Daily Past Drug Use History: None Reported Medications and Allergies Home Medications Medication Instructions Recorded Confirmed Type Aspirin 81 mg PO DAILY #30 tab 03/01/25 03/08/25 Rx Atorvastatin [Lipitor] 40 mg PO HS #30 tab 03/01/25 03/08/25 Rx Metoprolol Tartrate [Lopressor] 25 mg PO BID #30 tab 03/01/25 03/08/25 Rx Nitroglycerin Sl Tabs [Nitrostat] 0.4 mg SUBLINGUAL Q10M PRN #30 tab 03/01/25 03/08/25 Rx Pantoprazole [Protonix] 40 mg PO AC-BRKFST #30 tab 03/01/25 03/08/25 Rx Cyclobenzaprine [Flexeril] 10 mg PO TID 03/08/25 03/08/25 History Lisinopril-Hctz 10-12.5 mg 1 tab PO DAILY 03/08/25 03/08/25 History [Zestoretic 10-12.5] predniSONE See Taper PO DAILY 03/08/25 03/08/25 History Allergies Allergy/AdvReac Type Severity Reaction Status Date / Time codeine AdvReac Nausea & Verified 03/08/25 19:04 Vomiting PLASTIC BANDAGES Allergy Rash/Hives Uncoded 03/08/25 19:04 Physical Exam Vitals: Vital Signs Temp Pulse Resp BP Pulse Ox 03/08/25 21:26 97.9 F 62 17 108/59 95 03/08/25 19:38 97.7 F 68 16 117/56 97 03/08/25 16:54 98.0 F 50 L 20 148/73 99 03/08/25 12:47 97.4 F L 76 16 154/77 99 Intake and Output 03/08/25 03/08/25 03/08/25 06:59 14:59 22:59 Other: Weight 73.936 kg Results CBC & Chem 7: 03/08/25 15:30 03/08/25 22:42 Labs: Abnormal Lab Results - Last 24 Hours (Table) 03/08/25 03/08/25 03/08/25 Range/Units 15:30 15:30 15:30 WBC 10.17 H (4.50-10.00) 10*3/uL RBC 5.79 H (4.10-5.20) 10*6/uL Hgb 18.1 H (12.0-15.0) g/dL Hct 47.6 H (37.2-46.3) % MCHC 38.0 H (32.0-37.0) g/dL Immature Gran # 0.07 H (0.00-0.04) 10*3/uL Neutrophils # 8.71 H (1.80-7.70) 10*3/uL Eosinophils # 0.00 L (0.04-0.35) 10*3/uL D-Dimer 0.68 H (<0.60) mg/L FEU Sodium 113 L* (137-145) mmol/L Potassium 5.7 H (3.5-5.1) mmol/L Chloride 82 L (98-107) mmol/L Carbon Dioxide 13 L (22-30) mmol/L Creatinine 0.33 L (0.52-1.04) mg/dL Glucose 145 H (74-99) mg/dL Calcium (8.4-10.2) mg/dL AST 48 H (14-36) U/L ALT 35 H (4-34) U/L Alkaline Phosphatase 130 H (38-126) U/L Albumin 5.1 H (3.5-5.0) g/dL Ur Specific [place] (1.001-1.035) Urine Ketones (Negative) Ur Leukocyte Esterase (Negative) Urine WBC (0-5) /hpf Ur Squamous Epith Cells (0-4) /hpf 03/08/25 03/08/25 03/08/25 Range/Units 16:52 17:39 18:31 WBC (4.50-10.00) 10*3/uL RBC (4.10-5.20) 10*6/uL Hgb (12.0-15.0) g/dL Hct (37.2-46.3) % MCHC (32.0-37.0) g/dL Immature Gran # (0.00-0.04) 10*3/uL Neutrophils # (1.80-7.70) 10*3/uL Eosinophils # (0.04-0.35) 10*3/uL D-Dimer (<0.60) mg/L FEU Sodium 115 L* 121 L (137-145) mmol/L Potassium (3.5-5.1) mmol/L Chloride 80 L (98-107) mmol/L Carbon Dioxide (22-30) mmol/L Creatinine 0.36 L (0.52-1.04) mg/dL Glucose 143 H (74-99) mg/dL Calcium 10.5 H (8.4-10.2) mg/dL AST (14-36) U/L ALT (4-34) U/L Alkaline Phosphatase (38-126) U/L Albumin (3.5-5.0) g/dL Ur Specific [place] 1.049 H (1.001-1.035) Urine Ketones Trace H (Negative) Ur Leukocyte Esterase Moderate H (Negative) Urine WBC 12 H (0-5) /hpf Ur Squamous Epith Cells 6 H (0-4) /hpf
[2025-03-08] MEDS: CYCLOBENZAPRINE 10 MG TAB PO SCH (22:31)
[2025-03-08] MEDS: KETOROLAC 15 MG/ML 1 ML VIAL IVP PRN (22:31)
[2025-03-09] MEDS: MORPHINE SULFATE 4 MG/ML SYRINGE IV PRN (08:52)
[2025-03-09] MEDS: ENOXAPARIN 40 MG/0.4 ML SYRINGE SQ SCH (08:53)
[2025-03-09] MEDS: PANTOPRAZOLE 40 MG/10 ML VIAL IV SCH (08:53)
[2025-03-09] MEDS: METOPROLOL TARTRATE 25 MG TAB PO SCH (08:53)
[2025-03-09] MEDS: LISINOPRIL-HCTZ 10-12.5 MG 1 EACH TAB PO SCH (08:53)
[2025-03-09] MEDS: ASPIRIN 81 MG PO SCH (08:54)
[2025-03-09 08:57] LABS: Basophils # (A) 0.01 10*3/uL (0.00-0.10); Basophils % (A) 0.1 %; Eosinophils # (A) 0.05 10*3/uL (0.04-0.35); Eosinophils % (A) 0.6 %; HCT 45.3 % (37.2-46.3); HGB 16.6 g/dL (12.0-15.0); Lymphocytes # (A) 2.79 10*3/uL (0.90-5.00); Lymphocytes % (A) 31.8 %; MCH 31.1 pg (27.0-32.0); MCHC 36.6 g/dL (32.0-37.0); MCV 84.8 fL (80.0-97.0); Monocytes # (A) 0.98 10*3/uL (0.20-1.00); Monocytes % (A) 11.2 %; Neutrophils # (A) 4.88 10*3/uL (1.80-7.70); Neutrophils % (A) 55.6 %; Platelet Count 362 10*3/uL (140-440); RBC 5.34 10*6/uL (4.10-5.20); RDW 11.9 % (11.5-14.5); WBC 8.77 10*3/uL (4.50-10.00)
[2025-03-09 09:11] LABS: ALT 27 U/L (4-34); AST 25 U/L (14-36); African American GFR (CKD) >90 (>60 ml/min/1.73 sqM); Albumin 4.4 g/dL (3.5-5.0); Albumin/Globulin Ratio 1.8; Alkaline Phosphatase 101 U/L (38-126); Anion Gap 11 mmol/L; Blood Urea Nitrogen 10 mg/dL (7-17); Calcium 10.1 mg/dL (8.4-10.2); Carbon Dioxide 24 mmol/L (22-30); Chloride 88 mmol/L (98-107); Globulin 2.4 g/dL; Glucose 104 mg/dL (74-99); Magnesium 1.8 mg/dL (1.6-2.3); Non-African American GFR(CKD) >90 (>60 ml/min/1.73 sqM); Potassium 4.5 mmol/L (3.5-5.1); Sodium 123 mmol/L (137-145); Total Protein 6.8 g/dL (6.3-8.2)
--- NOTE | 2025-03-09 11:54 | P.PN ---
Subjective Progress Note Date: 03/09/25 Hospital Course: Pt is a 64 y.o F with PMHx of HTN and HLD who presented to the the ED for right lower back pain and found to have severe hyponatremia. ED vitals included T97.4, HR 76, RR 16, BP 154/77, O2 sat 99% on RA. Significant ED labs included WBC 10.17, hemoglobin 18.1, sodium 113, potassium 5.7, chloride 82, bicarb 13, BUN 11, creatinine 0.33, AST 48, ALT 35, D-dimer 0.68. UA likely contaminated as it shows trace ketones moderate leukocyte esterase and squamous epithelial cells. In the ED she received 1L NS bolus and pain medications for her back. Patient was admitted to the inpatient team. Her sodium levels were monitored and continued to improve. Subjective: Patient seen and examined at bedside. No acute events overnight. This morning pt complains of right lower back pain and notes the pain medicines received in the ED did help. She notes the back pain is currently in the right lower back and does not radiate anywhere at this time however will radiate up to her upper right back intermittently. She denies a history of kidney stones or pyelonephritis. She also notes she has not been eating well for the last year few weeks due to the pain and will normally drink approximately 4L/day at most. She has lost 3 pounds by last week due to not eating as well however denies unintentional weight loss. She consumes a beer and a shot of [place] (whiskey) nightly, however has not had alcohol since her back pain started 3 weeks. She also notes she smokes half a pack per day for the last 30 years. Denies fevers, chills, chest pain, shortness of breath, abdominal pain, dysuria. Pertinent positives and negatives as discussed above, a complete review of sys tems was performed and all other systems are negative. Vitals: Signs Reviewed Physical Exam: General: nontoxic, no distress, appears at stated age Derm: warm, dry, intact Head: atraumatic, normocephalic, symmetric Eyes: EOMI, anicteric sclera Mouth: no lip lesion, mucus membranes moist Cardiovascular: S1 S2 reg, no murmur, rubs, or gallops Lungs: CTA bilateral, no rhonchi, no rales, no accessory muscle use Abdominal: soft, non-tender to palpation, no appreciable organomegaly Extremities: no gross muscle atrophy, no edema, no contractures Neuro: Alert, Oriented, CNII-XII grossly intact, gait normal Psych: well appearing, appropriate affect Data Received Today: Pertinent Labs: WBC 8.77, hemoglobin 16.6, sodium 123, potassium 4.5, BUN 10, creatinine 0.40, AST 25, ALT 27 Imaging: Chest CTA -no PE, right upper lobe perihilar 8 mm pulmonary nodule. Recommends repeat CT chest in 6 to 12 months. EKG independently interpreted -normal sinus at 62 bpm, normal axis. Assessment and Plan: Severe asymptomatic hyponatremia, likely euvolemic vs hypovolemic - Pt states she will drink ~4L daily and recently started thiazide diuretic - Serum osm 260, urine osm 239 - Ordered urine sodium - Repeat sodium level at noon. If elevated then will start D5 1/2 normal salin e. - Discontinued home hydrochlorothiazide - Will continue to monitor - Nephrology consulted Acute right lower back pain, likely muscle strain - Continue home Flexeril - Continue lidocaine patch - Continue Toradol 15 mg every 6 hours - Continue morphine 4 mg every 4 hours Right perihilar pulmonary nodule - Nodule size 8 mm on CTA imaging - Recommendation is to follow-up with the CT chest in 6 to 12 months - Patient informed of results Resolved: Transaminitis - Initially mildly elevated AST, ALT in ED - Today AST, ALT normal Chronic: Primary hypertension - continue home metoprolol tartrate 25 mg twice daily, lisinopril 10 mg daily, holding HCTZ. Hyperlipidemia -continue home atorvastatin 40 mg daily F: Fluid restrict to 1500 mL E: Will continue to monitor and replenish as needed N: Regular diet A: Ambulating independently DVT ppx: Lovenox 40mg daily Code status: Full code Anticipated discharge place: Home Anticipated discharge time: 24 to 48 hours Jesu Georges DO PGY-1 IM Dictation was produced using [employer] dictation software. please excuse any grammatical, word or spelling errors. I have seen and evaluated the patient today. Discussed with the resident and agree with the residents finding and plan as documented in the resident's note. Changes highlighted in blue font. Objective - Vital Signs Vital signs: Vital Signs Temp 97.7 F 03/09/25 07:07 Pulse 66 03/09/25 07:07 Resp 18 03/09/25 07:07 BP 120/71 03/09/25 07:07 Pulse Ox 98 03/09/25 07:07 FiO2 Intake & Output 03/08/25 03/09/25 03/09/25 18:59 06:59 18:59 Weight 73.936 kg 73.936 kg Other: Voiding Method Toilet # Voids 1 - Labs CBC & Chem 7: 03/09/25 08:19 03/09/25 11:35 Labs: Abnormal Lab Results - Last 24 Hours (Table) 03/08/25 03/08/25 03/08/25 Range/Units 15:30 15:30 15:30 WBC 10.17 H (4.50-10.00) 10*3/uL RBC 5.79 H (4.10-5.20) 10*6/uL Hgb 18.1 H (12.0-15.0) g/dL Hct 47.6 H (37.2-46.3) % MCHC 38.0 H (32.0-37.0) g/dL Immature Gran # 0.07 H (0.00-0.04) 10*3/uL Neutrophils # 8.71 H (1.80-7.70) 10*3/uL Eosinophils # 0.00 L (0.04-0.35) 10*3/uL D-Dimer 0.68 H (<0.60) mg/L FEU Sodium 113 L* (137-145) mmol/L Potassium 5.7 H (3.5-5.1) mmol/L Chloride 82 L (98-107) mmol/L Carbon Dioxide 13 L (22-30) mmol/L Creatinine 0.33 L (0.52-1.04) mg/dL Glucose 145 H (74-99) mg/dL Osmolality (275-295) mOsm/kg Calcium (8.4-10.2) mg/dL AST 48 H (14-36) U/L ALT 35 H (4-34) U/L Alkaline Phosphatase 130 H (38-126) U/L Albumin 5.1 H (3.5-5.0) g/dL Ur Specific [place] (1.001-1.035) Urine Ketones (Negative) Ur Leukocyte Esterase (Negative) Urine WBC (0-5) /hpf Ur Squamous Epith Cells (0-4) /hpf 03/08/25 03/08/25 03/08/25 Range/Units 16:52 17:39 17:39 WBC (4.50-10.00) 10*3/uL RBC (4.10-5.20) 10*6/uL Hgb (12.0-15.0) g/dL Hct (37.2-46.3) % MCHC (32.0-37.0) g/dL Immature Gran # (0.00-0.04) 10*3/uL Neutrophils # (1.80-7.70) 10*3/uL Eosinophils # (0.04-0.35) 10*3/uL D-Dimer (<0.60) mg/L FEU Sodium 115 L* (137-145) mmol/L Potassium (3.5-5.1) mmol/L Chloride 80 L (98-107) mmol/L Carbon Dioxide (22-30) mmol/L Creatinine 0.36 L (0.52-1.04) mg/dL Glucose 143 H (74-99) mg/dL Osmolality 260 L (275-295) mOsm/kg Calcium 10.5 H (8.4-10.2) mg/dL AST (14-36) U/L ALT (4-34) U/L Alkaline Phosphatase (38-126) U/L Albumin (3.5-5.0) g/dL Ur Specific [place] 1.049 H (1.001-1.035) Urine Ketones Trace H (Negative) Ur Leukocyte Esterase Moderate H (Negative) Urine WBC 12 H (0-5) /hpf Ur Squamous Epith Cells 6 H (0-4) /hpf 03/08/25 03/08/25 03/09/25 Range/Units 18:31 22:42 08:19 WBC (4.50-10.00) 10*3/uL RBC 5.34 H (4.10-5.20) 10*6/uL Hgb 16.6 H (12.0-15.0) g/dL Hct (37.2-46.3) % MCHC (32.0-37.0) g/dL Immature Gran # 0.06 H (0.00-0.04) 10*3/uL Neutrophils # (1.80-7.70) 10*3/uL Eosinophils # (0.04-0.35) 10*3/uL D-Dimer (<0.60) mg/L FEU Sodium 121 L 120 L (137-145) mmol/L Potassium (3.5-5.1) mmol/L Chloride (98-107) mmol/L Carbon Dioxide (22-30) mmol/L Creatinine (0.52-1.04) mg/dL Glucose (74-99) mg/dL Osmolality (275-295) mOsm/kg Calcium (8.4-10.2) mg/dL AST (14-36) U/L ALT (4-34) U/L Alkaline Phosphatase (38-126) U/L Albumin (3.5-5.0) g/dL Ur Specific [place] (1.001-1.035) Urine Ketones (Negative) Ur Leukocyte Esterase (Negative) Urine WBC (0-5) /hpf Ur Squamous Epith Cells (0-4) /hpf // Range/Units 08:19 WBC (4.50-10.00) 10*3/uL RBC (4.10-5.20) 10*6/uL Hgb (12.0-15.0) g/dL Hct (37.2-46.3) % MCHC (32.0-37.0) g/dL Immature Gran # (0.00-0.04) 10*3/uL Neutrophils # (1.80-7.70) 10*3/uL Eosinophils # (0.04-0.35) 10*3/uL D-Dimer (<0.60) mg/L FEU Sodium 123 L (137-145) mmol/L Potassium (3.5-5.1) mmol/L Chloride 88 L (98-107) mmol/L Carbon Dioxide (22-30) mmol/L Creatinine 0.40 L (0.52-1.04) mg/dL Glucose 104 H (74-99) mg/dL Osmolality (275-295) mOsm/kg Calcium (8.4-10.2) mg/dL AST (14-36) U/L ALT (4-34) U/L Alkaline Phosphatase (38-126) U/L Albumin (3.5-5.0) g/dL Ur Specific [place] (1.001-1.035) Urine Ketones (Negative) Ur Leukocyte Esterase (Negative) Urine WBC (0-5) /hpf Ur Squamous Epith Cells (0-4) /hpf
[2025-03-09] MEDS: SODIUM CHLORIDE 0.9% 1,000 ML IV SCH (12:38)
[2025-03-09 13:34] VITALS: RESP 16
--- NOTE | 2025-03-09 13:37 | P.NPCON ---
History of Present Illness - Reason for Consult hyponatremia - History of Present Illness Patient is a 64-year-old female with a PMH of hypertension, hyperlipidemia who comes into the ED for evaluation of right upper back pain. In the ED, her sodium levels were 113. She received normal saline 0.9 bolus overnight, and her Sodium went up to 123 in about 20hrs Nephrology Consulted for Hyponatremia. Patient is seen at bedside today, she has no acute complains bedside Lower back pain, denies chest pain, SOB, Abdominal pain, No nausea, vomiting or Diarrhea. No significant hypotension noted, Patient reports drinking up to 4liters of fluids per day. She was recently started on Lisinopril/Hctz 10-12.5 once daily and it was stopped on admission Her Blood pressure today is 120/71 mmhg No history of liver disease Past Medical History Past Medical History: No Reported History History of Any Multi-Drug Resistant Organisms: MRSA Date of last positivie culture/infection: 2007 MDRO Source:: KNEE Past Surgical History: No Surgical Hx Reported Additional Past Surgical History / Comment(s): Endoscopy Past Anesthesia/Blood Transfusion Reactions: No Reported Reaction Past Psychological History: Depression Smoking Status: Current every day smoker Past Alcohol Use History: Daily Past Drug Use History: None Reported Medications and Allergies Home Medications Medication Instructions Recorded Confirmed Type Aspirin 81 mg PO DAILY #30 tab 03/01/25 03/08/25 Rx Atorvastatin [Lipitor] 40 mg PO HS #30 tab 03/01/25 03/08/25 Rx Metoprolol Tartrate [Lopressor] 25 mg PO BID #30 tab 03/01/25 03/08/25 Rx Nitroglycerin Sl Tabs [Nitrostat] 0.4 mg SUBLINGUAL Q10M PRN #30 tab 03/01/25 03/08/25 Rx Pantoprazole [Protonix] 40 mg PO AC-BRKFST #30 tab 03/01/25 03/08/25 Rx Cyclobenzaprine [Flexeril] 10 mg PO TID 03/08/25 03/08/25 History Lisinopril-Hctz 10-12.5 mg 1 tab PO DAILY 03/08/25 03/08/25 History [Zestoretic 10-12.5] predniSONE See Taper PO DAILY 03/08/25 03/08/25 History Allergies Allergy/AdvReac Type Severity Reaction Status Date / Time codeine AdvReac Nausea & Verified 03/08/25 19:04 Vomiting PLASTIC BANDAGES Allergy Rash/Hives Uncoded 03/08/25 19:04 Physical Exam Vitals: Vital Signs Temp Pulse Pulse Resp BP BP Pulse Ox 03/09/25 07:07 97.7 F 66 18 120/71 98 03/09/25 01:18 98.0 F 66 12 114/68 97 03/08/25 22:10 98.8 F 77 16 128/70 96 03/08/25 21:26 97.9 F 62 17 108/59 95 03/08/25 19:38 97.7 F 68 16 117/56 97 03/08/25 16:54 98.0 F 50 L 20 148/73 99 03/08/25 12:47 97.4 F L 76 16 154/77 99 Intake and Output 03/08/25 03/09/25 03/09/25 22:59 06:59 14:59 Other: Voiding Method Toilet # Voids 1 Weight 73.936 kg General Appears well, Alert and oriented Heart S1 and S2, No murmurs Lungs Clear to auscultation bilaterally ENTRY MANAGER grossly intact Abdomen: soft, non tender Results - Lab Results Most recent lab results Calcium 10.1 mg/dL (8.4-10.2) 03/09/25 08:19 Magnesium 1.8 mg/dL (1.6-2.3) 03/09/25 08:19 03/10/25 05:36 03/10/25 05:36 Assessment and Plan Assessment: 1. Hypovolemic hyponatremia associated with thiazide diuretics. improved with saline, Lisinopril/HCTZ on hold. TSH is 1.8 2. Hypertension. controlled 3. Upper back pain, Musculoskeletal 4. Hypercalcemia, possibly related to thiazide diuretics Plan: Resume Saline Repeat sodium in 4 hours, D/c Toradol if sodium didn't improve with saline, as NSAIDs can cause hyponatremia. encourage increase oral protein intake Repeat labs in Am control pain. Patient is seen and examined. Agree with resident's findings, assessment and plan. Thank you for the consultation. We will continue to follow the patient with you during her hospitalization
[2025-03-09] MEDS: LIDOCAINE 4% PATCH TOPICAL PRN (20:34)
[2025-03-09] MEDS: ATORVASTATIN 40 MG TAB PO SCH (21:55)
[2025-03-10 06:25] LABS: Basophils # (A) 0.06 10*3/uL (0.00-0.10); Basophils % (A) 0.7 %; Eosinophils # (A) 0.13 10*3/uL (0.04-0.35); Eosinophils % (A) 1.6 %; HCT 41.7 % (37.2-46.3); HGB 14.7 g/dL (12.0-15.0); Lymphocytes # (A) 2.72 10*3/uL (0.90-5.00); Lymphocytes % (A) 33.3 %; MCH 30.4 pg (27.0-32.0); MCHC 35.3 g/dL (32.0-37.0); MCV 86.2 fL (80.0-97.0); Monocytes # (A) 1.08 10*3/uL (0.20-1.00); Monocytes % (A) 13.2 %; Neutrophils # (A) 4.15 10*3/uL (1.80-7.70); Neutrophils % (A) 50.7 %; Platelet Count 352 10*3/uL (140-440); RBC 4.84 10*6/uL (4.10-5.20); RDW 12.5 % (11.5-14.5); WBC 8.18 10*3/uL (4.50-10.00)
[2025-03-10 06:42] LABS: African American GFR (CKD) >90 (>60 ml/min/1.73 sqM); Anion Gap 7 mmol/L; Blood Urea Nitrogen 12 mg/dL (7-17); Calcium 9.4 mg/dL (8.4-10.2); Carbon Dioxide 25 mmol/L (22-30); Chloride 97 mmol/L (98-107); Glucose 103 mg/dL (74-99); Magnesium 1.9 mg/dL (1.6-2.3); Non-African American GFR(CKD) >90 (>60 ml/min/1.73 sqM); Potassium 5.2 mmol/L (3.5-5.1); Sodium 129 mmol/L (137-145)
[2025-03-10 07:25] LABS: Glucose,Whole Blood 111 mg/dL (70-110)
[2025-03-10 07:34] VITALS: BP 164/77; PULSE 70; TEMP 97.7
[2025-03-10] MEDS: PANTOPRAZOLE 40 MG TABLET PO SCH (09:04)
[2025-03-10] MEDS: SODIUM CHLORIDE 0.9% 1,000 ML IV SCH (09:05)
--- NOTE | 2025-03-10 11:29 | P.DS ---
Providers Date of admission: 03/08/25 19:59 Expected date of discharge: 03/10/25 Attending physician: Shahnaz Bell MD Consults: 03/08/25 18:17 Consult Physician Urgent Consulting Provider: Jossie Harvey Consult Reason/Comments: Hyponatremia Do you want consulting provider notified?: Yes Primary care physician: [place] Hospital Course: Discharge Diagnosis: Severe asymptomatic hypotonic hyponatremia Lower back sprain Transaminitis - resolved Hyperkalemia - resolved Hypercalcemia - resolved Right perihilar pulmonary nodule HTN HLD Hospital Course: Pt is a 64 y.o F with PMHx of HTN and HLD who presented to the the ED for right lower back pain and found to have severe hyponatremia. ED vitals included T97.4, HR 76, RR 16, BP 154/77, O2 sat 99% on RA. Significant ED labs included WBC 10.17, hemoglobin 18.1, sodium 113, potassium 5.7, chloride 82, bicarb 13, BUN 11, creatinine 0.33, calcium 10.5, AST 48, ALT 35, D-dimer 0.68. UA likely contaminated as it shows trace ketones moderate leukocyte esterase and squamous epithelial cells. CTA chest showed no evidence of PE, right upper lobe perihilar 8 mm pulmonary nodule and recommended to follow-up with CT chest in 6 to 12 months. In the ED she received 1L NS bolus and pain medications for her back. Patient was admitted to the inpatient team. Her sodium levels were monitored and continued to improve. Serum osmolality 260, urine osmolality 239, urine sodium <20. On discharge significant labs include WBC 8.18, hgb 14.7, sodium 129, potassium 5.2, BUN 12, creatinine 0.45, calcium 9.4. New medications include lidocaine patch and lisinopril daily. Please discontinue lisinoprilHCTZ. Follow-up with your PCP and obtain CT chest in 6 to 12 months. Patient seen and examined at bedside. Pt is stable this morning with no new acute complaints. Vital signs reviewed and stable. Physical examination: Vital signs reviewed General: non toxic, no distress, appears at stated age, normal weight Derm: no unusual rashes/lesions, warm Head: atraumatic, normocephalic, symmetric ENT: Nose and ears atraumatic Mouth: no lip lesion, mucus membranes moist Ext: no gross muscle atrophy Neuro: CN II-XI grossly intact, no gross focal neuro deficits Psych: Alert, oriented to person, place, and time A total of greater than 30 minutes of time were spent preparing this complex discharge summary. Patient was discharged on 03/10/2025. Jesu Georges DO PGY-1 IM Dictation was produced using [employer] dictation software. please excuse any grammatical, word or spelling errors. I saw and evaluated the patient during the [place] and critical portions of this encounter, and discussed the case in detail with the resident author of this note, I agree with the Assessment and Plan, and my changes, if any, are highlighted in blue. Patient Condition at Discharge: Stable Plan - Discharge Summary Discharge Rx Participant: No New Discharge Prescriptions: New Lidocaine 4% Patch 1 patch TOPICAL DAILY PRN #10 patch PRN Reason: Moderate To Severe Spasms lisinopriL [Zestril] 10 mg PO DAILY #30 tab Continue Atorvastatin [Lipitor] 40 mg PO HS #30 tab predniSONE See Taper PO DAILY Cyclobenzaprine [Flexeril] 10 mg PO TID Aspirin 81 mg PO DAILY #30 tab Metoprolol Tartrate [Lopressor] 25 mg PO BID #30 tab Pantoprazole [Protonix] 40 mg PO AC-BRKFST #30 tab Discontinued Nitroglycerin Sl Tabs [Nitrostat] 0.4 mg SUBLINGUAL Q10M PRN #30 tab PRN Reason: Chest Pain Lisinopril-Hctz 10-12.5 mg [Zestoretic 10-12.5] 1 tab PO DAILY Discharge Medication List Aspirin 81 mg PO DAILY #30 tab 03/01/25 [Rx] Atorvastatin [Lipitor] 40 mg PO HS #30 tab 03/01/25 [Rx] Metoprolol Tartrate [Lopressor] 25 mg PO BID #30 tab 03/01/25 [Rx] Pantoprazole [Protonix] 40 mg PO AC-BRKFST #30 tab 03/01/25 [Rx] Cyclobenzaprine [Flexeril] 10 mg PO TID 03/08/25 [History] predniSONE See Taper PO DAILY 03/08/25 [History] Lidocaine 4% Patch 1 patch TOPICAL DAILY PRN #10 patch 03/10/25 [Rx] lisinopriL [Zestril] 10 mg PO DAILY #30 tab 03/10/25 [Rx] Follow up Appointment(s)/Referral(s): Rivera Jason DO [Primary Care Provider] - 03/14/25 2:20 pm () Patient Instructions/Handouts: Lisinopril (By mouth), Lidocaine Patch (On the skin), Hyponatremia (DC), Musculoskeletal Pain (GEN) Activity/Diet/Wound Care/Special Instructions: Please follow-up with your PCP. Discharge Disposition: HOME SELF-CARE
--- NOTE | 2025-03-10 12:37 | P.PN ---
Subjective Patient was discharged prior to rounds. [place] from the primary team that She was doing okay. Just feeling upset about her back pain. Denies dizziness. she wanted to leave Objective - Vital Signs Vital signs: Vital Signs Temp 97.7 F 03/10/25 07:05 Pulse 70 03/10/25 07:05 Resp 16 03/10/25 07:05 BP 164/77 03/10/25 07:05 Pulse Ox 95 03/10/25 07:05 FiO2 Intake & Output 03/09/25 03/10/25 03/10/25 18:59 06:59 18:59 Intake Total 720 480 240 Output Total 600 1800 Balance 120 -1320 240 Intake: Oral 720 480 240 Output: Urine 600 1800 Other: Voiding Method Toilet - Labs CBC & Chem 7: 03/10/25 05:36 03/10/25 05:36 Labs: Abnormal Lab Results - Last 24 Hours (Table) 03/09/25 03/09/25 03/09/25 Range/Units 11:35 16:16 17:15 Monocytes # (0.20-1.00) 10*3/uL Sodium 121 L 122 L (137-145) mmol/L Potassium (3.5-5.1) mmol/L Chloride (98-107) mmol/L Creatinine (0.52-1.04) mg/dL Glucose (74-99) mg/dL POC Glucose (mg/dL) (70-110) mg/dL Ur Random Sodium <20 L (40-220) mmol/L 03/10/25 03/10/25 03/10/25 Range/Units 05:36 05:36 07:24 Monocytes # 1.08 H (0.20-1.00) 10*3/uL Sodium 129 L (137-145) mmol/L Potassium 5.2 H (3.5-5.1) mmol/L Chloride 97 L (98-107) mmol/L Creatinine 0.45 L (0.52-1.04) mg/dL Glucose 103 H (74-99) mg/dL POC Glucose (mg/dL) 111 H (70-110) mg/dL Ur Random Sodium (40-220) mmol/L Microbiology - Last 24 Hours (Table) 03/08/25 17:39 Urine Culture - Final Urine,Voided Assessment and Plan Assessment: 1. Hypovolemic hyponatremia associated with thiazide diuretics. improved with saline, Lisinopril/HCTZ on hold. sodium prior to discharge was 129. TSH is 1.8 2. Hypertension. controlled 3. Upper back pain, Musculoskeletal 4. Hypercalcemia, possibly related to thiazide diuretics Plan: D/c Toradol as NSAIDs can cause hyponatremia. encourage increase oral protein intake Clear to discharge from Nephrology standpoint
== END 2025-03-10 10:32 | disposition home or self-care (01) | DRG 641 ==
LOC: EC 12:44 → 5NMEDONC 19:59
PROVIDERS: ADMIT Family Medicine; ATTEND Family Medicine
DX: E87.1 Hypo-osmolality and hyponatremia (principal); E78.5 Hyperlipidemia, unspecified; I10 Essential (primary) hypertension; F32.A Depression, unspecified; T50.2X5A Adverse effect of carbonic-anhydrase inhibitors, benzothiadiazides and other diuretics, initial encounter; E83.52 Hypercalcemia; E87.5 Hyperkalemia; F17.210 Nicotine dependence, cigarettes, uncomplicated; R74.01 Elevation of levels of liver transaminase levels; R91.1 Solitary pulmonary nodule; E86.1 Hypovolemia; S39.012A Strain of muscle, fascia and tendon of lower back, initial encounter; Z79.82 Long term (current) use of aspirin; Z79.899 Other long term (current) drug therapy; Z88.5 Allergy status to narcotic agent; Z91.048 Other nonmedicinal substance allergy status; X58.XXXA Exposure to other specified factors, initial encounter; S33.9XXA Sprain of unspecified parts of lumbar spine and pelvis, initial encounter
CPT/HCPCS: 36415; 71275; 80048; 80053; 81001; 83735; 83930; 83935; 84295; 84300; 85025; 85379; 87086; 93005; 96360; 96372; 99285

== ENCOUNTER 2025-03-11 12:51 | Observation (INO) | payer BC ==
[2025-03-11 14:55] LABS: Basophils # (A) 0.05 10*3/uL (0.00-0.10); Basophils % (A) 0.5 %; Eosinophils # (A) 0.08 10*3/uL (0.04-0.35); Eosinophils % (A) 0.8 %; HCT 46.5 % (37.2-46.3); HGB 16.7 g/dL (12.0-15.0); Lymphocytes # (A) 2.25 10*3/uL (0.90-5.00); Lymphocytes % (A) 23.2 %; MCH 30.8 pg (27.0-32.0); MCHC 35.9 g/dL (32.0-37.0); MCV 85.6 fL (80.0-97.0); Monocytes # (A) 0.89 10*3/uL (0.20-1.00); Monocytes % (A) 9.2 %; Neutrophils # (A) 6.41 10*3/uL (1.80-7.70); Neutrophils % (A) 66.0 %; Platelet Count 384 10*3/uL (140-440); RBC 5.43 10*6/uL (4.10-5.20); RDW 12.3 % (11.5-14.5); WBC 9.71 10*3/uL (4.50-10.00)
--- NOTE | 2025-03-11 14:56 | XR ---
EXAMINATION TYPE: XR chest 2V DATE OF EXAM: 03/11/2025 2:51 PM COMPARISON: Prior chest radiograph 02/28/2025. CLINICAL INDICATION: Female, 64 years old with history of dizzy; PHH TECHNIQUE: XR chest 2V Frontal and lateral views of the chest. FINDINGS: Lungs/Pleura: There is no evidence of pleural effusion, focal consolidation, or pneumothorax. Pulmonary vascularity: Unremarkable. Heart/mediastinum: Cardiomediastinal silhouette is unremarkable. Musculoskeletal: No acute osseous pathology. Other findings: None IMPRESSION: No acute cardiopulmonary disease/process. [facility], , 03/11/2025 2:54 PM
[2025-03-11 14:58] LABS: Bacteria,Urine Rare /hpf; Bilirubin,Urine Negative (Negative); Blood,Urine Negative (Negative); Color,Urine Colorless; Glucose,Urine (UA) Negative (Negative); Ketones,Urine Trace (Negative); Leukocyte Esterase,Urine Small (Negative); Nitrite,Urine Negative (Negative); PH, Urine 7.0 (5.0-8.0); Protein,Urine Negative (Negative); RBC,Urine 1 /hpf (0-5); Specific Gravity,Urine 1.004 (1.001-1.035); Squamous Epithelial Cell,Urine 2 /hpf (0-4); Urobilinogen,Urine <2.0 mg/dL (<2.0); WBC,Urine 2 /hpf (0-5)
[2025-03-11] MEDS: SODIUM CHLORIDE 0.9% 1,000 ML IV STA (15:14)
[2025-03-11 15:16] LABS: ALT 29 U/L (4-34); AST 26 U/L (14-36); African American GFR (CKD) >90 (>60 ml/min/1.73 sqM); Albumin 4.6 g/dL (3.5-5.0); Alkaline Phosphatase 95 U/L (38-126); Anion Gap 13 mmol/L; Blood Urea Nitrogen 7 mg/dL (7-17); Calcium 10.0 mg/dL (8.4-10.2); Carbon Dioxide 22 mmol/L (22-30); Chloride 90 mmol/L (98-107); Glucose 119 mg/dL (74-99); Non-African American GFR(CKD) >90 (>60 ml/min/1.73 sqM); Potassium 4.8 mmol/L (3.5-5.1); Sodium 125 mmol/L (137-145); Total Protein 7.2 g/dL (6.3-8.2)
--- NOTE | 2025-03-11 15:33 | CT ---
EXAMINATION TYPE: CT brain wo con DATE OF EXAM: 03/11/2025 3:22 PM COMPARISON: None.. CLINICAL INDICATION: Female, 64 years old with history of dizzy, slurred speech, dizzy, slurred speec h TECHNIQUE: Brain: Axial CT images of the brain were obtained with coronal and sagittal reformats created and rev iewed. Contrast used: None. Oral contrast used: None. CT DLP: 1122 mGycm, Automated exposure control for dose reduction was used. FINDINGS: Brain: Extra-axial spaces: No abnormal extra-axial fluid collections. Ventricular system: Within normal limits Cerebral parenchyma: No acute intraparenchymal hemorrhage or mass effect. The edouard-white junction is well differentiated. Small focal region of high density (26/60) adjacent to the right midbrain is n ot well visualized on coronal reformats. 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 Cerebellum: Unremarkable. Mass effect: No evidence of midline shift. Intracranial vasculature: unremarkable Soft tissues: Normal. Calvarium/osseous structures: No depressed skull fracture. Paranasal sinuses and mastoid air cells: Mild scattered paranasal sinus disease. Visualized orbits: Orbital contents are intact. IMPRESSION: No acute intracranial process. [facility], , 03/11/2025 3:31 PM
--- NOTE | 2025-03-11 16:28 | CT ---
EXAMINATION TYPE: CT angio head neck DATE OF EXAM: 03/11/2025 3:25 PM COMPARISON: None. CLINICAL INDICATION: Female, 64 years old with history of dizzy, slurred speech; PHH, dizzy, slurred speech TECHNIQUE: Axially acquired helical CT angiogram of the head and neck was obtained with contrast. Axi al images are supplemented with 3D reconstructions and MIP images which were post-processed at an in dependent workstation. NASCET criteria used. Contrast used:65ML mL of Isovue 370 with IV Contrast, Oral contrast used: None. CT DLP: 359.9 mGycm, Automated exposure control for dose reduction was used. FINDINGS: CTA HEAD: No evidence of acute intracranial hemorrhage, mass effect, or midline shift. The ventricles, sulci, a nd cisterns are unremarkable. Vertebral arteries: The vertebral arteries are patent. Vertebral artery dominance: Codominant Basilar artery: The basilar artery is intact. The basilar artery bifurcation is normal. Internal Carotid arteries: The cervical, petrous, cavernous and supraclinoid segments are normal. KOBI: Patent with no evidence of aneurysm. ACOM: Present without evidence of aneurysm. MCA: Patent with no evidence of aneurysm. CHEMICAL PACKAGER: Patent with no evidence of aneurysm. PCOM: Hypoplastic bilaterally. Dural sinuses: Patent. CTA NECK: Right Carotid System: The common carotid and external carotid arteries are patent. There is less than 50 % stenosis at the carotid bifurcation secondary to calcified/noncalcified plaque. The rest of the internal carotid sung ry is patent. Left Carotid System: The common carotid and external carotid arteries are patent. There is less than 50 % stenosis at the carotid bifurcation secondary to calcified/noncalcified plaque. The rest of the internal carotid sung ry is patent. Vertebral arteries are patent without evidence hemodynamically significant stenosis. There is a three-vessel aortic arch. The origins of the great vessels are patent. No evidence of hemo dynamically significant stenosis. Upper thorax: IMPRESSION: 1. No evidence of dissection of the cervical internal carotid arteries or vertebral arteries. 2. No any evidence of significant stenosis at the carotid bifurcations. 3. No evidence of intracranial high-grade stenosis or intracranial aneurysm. [facility], , 03/11/2025 4:26 PM
--- NOTE | 2025-03-11 16:47 | ED ---
General Adult HPI - General Chief complaint: Dizziness Stated complaint: dizziness,neck pain Time Seen by Provider: 03/11/25 13:00 Source: patient Mode of arrival: ambulatory Limitations: no limitations - Related Data Home Medications Medication Instructions Recorded Confirmed Cyclobenzaprine [Flexeril] 10 mg PO TID 03/08/25 03/11/25 traMADol HCL 50 mg PO DIRECTED PRN 03/11/25 03/11/25 Previous Rx's Medication Instructions Recorded Aspirin 81 mg PO DAILY #30 tab 03/01/25 Atorvastatin [Lipitor] 40 mg PO HS #30 tab 03/01/25 Metoprolol Tartrate [Lopressor] 25 mg PO BID #30 tab 03/01/25 Pantoprazole [Protonix] 40 mg PO AC-BRKFST #30 tab 03/01/25 Lidocaine 4% Patch 1 patch TOPICAL DAILY PRN #10 patch 03/10/25 lisinopriL [Zestril] 10 mg PO DAILY #30 tab 03/10/25 Allergies Allergy/AdvReac Type Severity Reaction Status Date / Time codeine AdvReac Nausea & Verified 03/11/25 17:11 Vomiting PLASTIC BANDAGES Allergy Rash/Hives Uncoded 03/11/25 13:01 Review of Systems ROS Statement: Those systems with pertinent positive or pertinent negative responses have been documented in the HPI. ROS Other: All systems not noted in ROS Statement are negative. Past Medical History Past Medical History: Hypertension Additional Past Medical History / Comment(s): Back pain, History of Any Multi-Drug Resistant Organisms: MRSA Date of last positivie culture/infection: 2007 MDRO Source:: KNEE Past Surgical History: No Surgical Hx Reported Additional Past Surgical History / Comment(s): Endoscopy Past Anesthesia/Blood Transfusion Reactions: No Reported Reaction Past Psychological History: Depression Smoking Status: Current every day smoker Past Alcohol Use History: Daily Past Drug Use History: None Reported General Exam Limitations: no limitations Course Vital Signs 03/11/25 03/11/25 12:57 18:00 Temperature 98.2 F Pulse Rate 72 82 Respiratory 20 17 Rate Blood Pressure 173/88 182/92 O2 Sat by Pulse 98 99 Oximetry Medical Decision Making - Medical Decision Making Was pt. sent in by a medical professional or institution (, PA, TELEVISION REPORTER, urgent care, hospital, or fci...) When possible be specific @ -[No] Did you speak to anyone other than the patient for history (EMS, parent, family, police, friend...)? What history was obtained from this source @ -[No] Did you review nursing and triage notes (agree or disagree)? Why? @ -[I reviewed and agree with nursing and triage notes] Were old charts reviewed (outside hosp., previous admission, EMS record, old EKG, old radiological studies, urgent care reports/EKG's, fci records)? Report findings @ -[No old charts were reviewed] Differential Diagnosis (chest pain, altered mental status, abdominal pain women, abdominal pain men, vaginal bleeding, weakness, fever, dyspnea, syncope, headache, dizziness, GI bleed, back pain, seizure, CVA, palpatations, mental health, musculoskeletal)? @ -[not applicable] EKG interpreted by me (3pts min.). @ -Yes and demonstrates sinus rhythm with rate of 62. MO interval 158. QRS 93. QTc of 377. No acute ST segment elevations or depressions X-rays interpreted by me (1pt min.). @ -[None done] CT interpreted by me (1pt min.). @ -[None done] U/S interpreted by me (1pt. min.). @ -[None done] What testing was considered but not performed or refused? (CT, X-rays, U/S, labs)? Why? @ -[None] What meds were considered but not given or refused? Why? @ -[None] Did you discuss the management of the patient with other professionals (professionals i.e. , PA, TELEVISION REPORTER, lab, RT, psych nurse, psychotherapist social worker, dog day care attendant, teacher, legal compliance officer, disability case manager)? Give summary @ -[No] Was smoking cessation discussed for >3mins.? @ -[No] Was critical care preformed (if so, how long)? @ -[No] Were there social determinants of health that impacted care today? How? (Homelessness, low income, unemployed, alcoholism, drug addiction, transportation, low edu. Level, literacy, decrease access to med. care, residential, rehab)? @ -[No] Was there de-escalation of care discussed even if they declined (Discuss DNR or withdrawal of care, Hospice)? DNR status @ -[No] What co-morbidities impacted this encounter? (DM, HTN, Smoking, COPD, CAD, Cancer, CVA, ARF, Chemo, Hep., AIDS, mental health diagnosis, sleep apnea, morbid obesity)? @ -[None] Was patient admitted / discharged? Hospital course, mention meds given and route, prescriptions, significant lab abnormalities, going to OR and other pertinent info. @ -[hospital course] Undiagnosed new problem with uncertain prognosis? @ -[No] Drug Therapy requiring intensive monitoring for toxicity (Heparin, Nitro, Insulin, Cardizem)? @ -[No] Were any procedures done? @ -[No] Diagnosis/symptom? @ -[default] Acute, or Chronic, or Acute on Chronic? @ -[default] Uncomplicated (without systemic symptoms) or Complicated (systemic symptoms)? @ -[default] Side effects of treatment? @ -[No] Exacerbation, Progression, or Severe Exacerbation? @ -[No] Poses a threat to life or bodily function? How? (Chest pain, [place], [place], pneumonia, PE, COPD, DKA, ARF, appy, cholecystitis, CVA, Diverticulitis, Homicidal, Suicidal, threat to staff... and all critical care pts) @ -[No] - Lab Data Result diagrams: 03/11/25 14:05 03/11/25 14:05 Lab Results 03/11/25 03/11/25 03/11/25 Range/Units 14:05 14:05 14:05 WBC 9.71 (4.50-10.00) 10*3/uL RBC 5.43 H (4.10-5.20) 10*6/uL Hgb 16.7 H (12.0-15.0) g/dL Hct 46.5 H (37.2-46.3) % MCV 85.6 (80.0-97.0) fL MCH 30.8 (27.0-32.0) pg MCHC 35.9 (32.0-37.0) g/dL Plt Count 384 (140-440) 10*3/uL MPV 10.3 (9.5-12.2) fL Immature Gran % (Auto) 0.3 % Neutrophils % 66.0 % Lymphocytes % 23.2 % Monocytes % 9.2 % Eosinophils % 0.8 % Basophils % 0.5 % Immature Gran # 0.03 (0.00-0.04) 10*3/uL Neutrophils # 6.41 (1.80-7.70) 10*3/uL Lymphocytes # 2.25 (0.90-5.00) 10*3/uL Monocytes # 0.89 (0.20-1.00) 10*3/uL Eosinophils # 0.08 (0.04-0.35) 10*3/uL Basophils # 0.05 (0.00-0.10) 10*3/uL Sodium 125 L (137-145) mmol/L Potassium 4.8 (3.5-5.1) mmol/L Chloride 90 L (98-107) mmol/L Carbon Dioxide 22 (22-30) mmol/L Anion Gap 13 mmol/L BUN 7 (7-17) mg/dL Creatinine 0.31 L (0.52-1.04) mg/dL Est GFR (CKD-EPI)AfAm >90 (>60 ml/min/1.73 sqM) Est GFR (CKD-EPI)NonAf >90 (>60 ml/min/1.73 sqM) Glucose 119 H (74-99) mg/dL Plasma Lactic Acid Mando (0.7-2.0) mmol/L Calcium 10.0 (8.4-10.2) mg/dL Total Bilirubin 0.9 (0.2-1.3) mg/dL AST 26 (14-36) U/L ALT 29 (4-34) U/L Alkaline Phosphatase 95 (38-126) U/L Troponin I (0.000-0.034) ng/mL Total Protein 7.2 (6.3-8.2) g/dL Albumin 4.6 (3.5-5.0) g/dL Urine Color Colorless Urine Appearance Clear (Clear) Urine pH 7.0 (5.0-8.0) Ur Specific [place] 1.004 (1.001-1.035) Urine Protein Negative (Negative) Urine Glucose (UA) Negative (Negative) Urine Ketones Trace H (Negative) Urine Blood Negative (Negative) Urine Nitrite Negative (Negative) Urine Bilirubin Negative (Negative) Urine Urobilinogen <2.0 (<2.0) mg/dL Ur Leukocyte Esterase Small H (Negative) Urine RBC 1 (0-5) /hpf Urine WBC 2 (0-5) /hpf Ur Squamous Epith Cells 2 (0-4) /hpf Urine Bacteria Rare H (None) /hpf 03/11/25 03/11/25 Range/Units 14:05 14:05 WBC (4.50-10.00) 10*3/uL RBC (4.10-5.20) 10*6/uL Hgb (12.0-15.0) g/dL Hct (37.2-46.3) % MCV (80.0-97.0) fL MCH (27.0-32.0) pg MCHC (32.0-37.0) g/dL Plt Count (140-440) 10*3/uL MPV (9.5-12.2) fL Immature Gran % (Auto) % Neutrophils % % Lymphocytes % % Monocytes % % Eosinophils % % Basophils % % Immature Gran # (0.00-0.04) 10*3/uL Neutrophils # (1.80-7.70) 10*3/uL Lymphocytes # (0.90-5.00) 10*3/uL Monocytes # (0.20-1.00) 10*3/uL Eosinophils # (0.04-0.35) 10*3/uL Basophils # (0.00-0.10) 10*3/uL Sodium (137-145) mmol/L Potassium (3.5-5.1) mmol/L Chloride (98-107) mmol/L Carbon Dioxide (22-30) mmol/L Anion Gap mmol/L BUN (7-17) mg/dL Creatinine (0.52-1.04) mg/dL Est GFR (CKD-EPI)AfAm (>60 ml/min/1.73 sqM) Est GFR (CKD-EPI)NonAf (>60 ml/min/1.73 sqM) Glucose (74-99) mg/dL Plasma Lactic Acid Mando 1.2 (0.7-2.0) mmol/L Calcium (8.4-10.2) mg/dL Total Bilirubin (0.2-1.3) mg/dL AST (14-36) U/L ALT (4-34) U/L Alkaline Phosphatase (38-126) U/L Troponin I <0.012 (0.000-0.034) ng/mL Total Protein (6.3-8.2) g/dL Albumin (3.5-5.0) g/dL Urine Color Urine Appearance (Clear) Urine pH (5.0-8.0) Ur Specific [place] (1.001-1.035) Urine Protein (Negative) Urine Glucose (UA) (Negative) Urine Ketones (Negative) Urine Blood (Negative) Urine Nitrite (Negative) Urine Bilirubin (Negative) Urine Urobilinogen (<2.0) mg/dL Ur Leukocyte Esterase (Negative) Urine RBC (0-5) /hpf Urine WBC (0-5) /hpf Ur Squamous Epith Cells (0-4) /hpf Urine Bacteria (None) /hpf Disposition Clinical Impression: Hyponatremia Disposition: ADMITTED IP TO THIS [facility] Condition: Stable Is patient prescribed a controlled substance at d/c from ED?: No Referrals: Rivera Jason DO [Primary Care Provider] - 1-2 days Time of Disposition: 18:24 Decision to Admit Reason: Admit from EC Decision Date: 03/11/25 Decision Time: 18:24
[2025-03-11] MEDS ORDERED: NALOXONE 0.4 MG/ML 1 ML VIAL IV PRN (18:25)
[2025-03-11] MEDS: SODIUM CHLORIDE 0.9% 1,000 ML IV SCH (18:51)
--- NOTE | 2025-03-12 03:45 | P.HPIM ---
History of Present Illness H&P Date: 03/11/25 Chief Complaint: dizziness Patient is a 64-year-old female with a PMH of - Primary hypertension - Hyperlipidemia - Hyponatremia Comes to the ED today for the evaluation of dizziness. Patient was recently hospitalized for the evaluation of back pain and acute hyponatremia, and she was discharged yesterday. Patient stated that she woke up doing well and she sat d own in her recliner and took her blood pressure medication, and soon after her noticed her slurred speech. Patient stated that she felt her tongue with heavy and could not say words. On her way to the ED, patient noticed new onset of blurry vision bilaterally. At bedside, patient endorsed resolved blurry vision, and slurred speech. Upon arrival to the ED, her systolic blood pressure was in 200s, and when examined her blood pressure was 182/92. Patient stated having a headache this morning. She also stated that she measures her blood pressure at home, and usually SBP around 129. Denied having chest pain, abdominal pain, muscle weakness, numbness or tingling, fever or chills, diarrhea or constipation, sore throat, dysuria. Labs WBC 9.71, Hgb 16.7, HCT 26.5, plt count 384 Na 125, K 4.8, BUN 7, Cr 0.31 Vitals T 97.9 F, HR 76, RR 20, BP 136/71, O2 sat 98% on RA ED documentation reviewed. Review of systems: Pertinent positives and negatives as discussed in HPI, a complete review of systems was performed and all other systems are negative. Physical examination: Vital signs reviewed General: no acute distress, well-nourished, Derm: warm, dry, and well perfused. No lesions, nodules or rashes are noted Head: normocephalic and atraumatic Eyes: EOMI, anicteric sclera, pupils equal round reactive to light ENT: nose and ears atraumatic Neck: supple, no appreciable thyromegaly, no lymphadenopathy Mouth: no lip lesion, mucus membranes moist Cardiovascular: normal S1S2, no murmur or gallops, positive dorsalis pedis pulse bilateral, no edema Lungs: clear to auscultation bilaterally, no wheezes or crackles or rhonchi, no accessory muscle use Abdominal: soft, nontender to palpation, no guarding, no rebound Ext: muscle strength 5 out of 5 in all 4 extremities grossly, no gross muscle atrophy Neuro: no focal sensory or motor deficits are noted Psych: Alert, oriented x3 Assessment and plan: #. Malignant hypertension episode with transient neurological symptoms - SBP in 200s when arrived to the ED, on repeat BP 182/92 - Monitor blood pressure closely - Resume lisinopril 10 mg, metoprolol tartrate 25 mg BID Goal is to reduce MAP by 25% over first 6 hours , then goal to keep SBP <180 for rest of the day #. Acute hyponatremia - Asymptomatic - Na 125>127, continue NS IV fluids - Monitor sodium levels closely - Goal to increase sodium by 5 to 8 mmol/L in 24 hours #. History of acute right upper backache - Likely a muscle spasm - Control pain with medications, Lidocaine patch, ice packs #. Right perihilar pulmonary nodule - Nodule size 8 mm on CTA imaging in 03/08 - Recommendation is to follow-up with the CT chest in 6 to 12 months #. Hyperlipidemia - Resume atorvastatin 40 mg DVT prophylaxis: Lovenox 40 mg The patient is admitted with an anticipated venous than 2 midnight stay for evaluation of dizziness and hyponatremia CODE STATUS: Full code Discussed with: Dr. Cantu Anticipated discharge place: Home Chanel Estrella MD PGY-1 IM Dictation was produced using [email or web address] dictation software. please excuse any g rammatical, word or spelling errors. I have seen and evaluated the patient today. I Discussed the case with the resident and agree with the resident's findings I edited the assessment and plan as necessary as documented in the resident's note. Past Medical History Past Medical History: Hypertension Additional Past Medical History / Comment(s): Back pain, History of Any Multi-Drug Resistant Organisms: MRSA Date of last positivie culture/infection: 2007 MDRO Source:: KNEE Past Surgical History: No Surgical Hx Reported Additional Past Surgical History / Comment(s): Endoscopy Past Anesthesia/Blood Transfusion Reactions: No Reported Reaction Past Psychological History: Depression Smoking Status: Current every day smoker Past Alcohol Use History: Daily Past Drug Use History: None Reported Medications and Allergies Home Medications Medication Instructions Recorded Confirmed Type Aspirin 81 mg PO DAILY #30 tab 03/01/25 03/11/25 Rx Atorvastatin [Lipitor] 40 mg PO HS #30 tab 03/01/25 03/11/25 Rx Metoprolol Tartrate [Lopressor] 25 mg PO BID #30 tab 03/01/25 03/11/25 Rx Pantoprazole [Protonix] 40 mg PO AC-BRKFST #30 tab 03/01/25 03/11/25 Rx Cyclobenzaprine [Flexeril] 10 mg PO TID 03/08/25 03/11/25 History Lidocaine 4% Patch 1 patch TOPICAL DAILY PRN #10 patch 03/10/25 03/11/25 Rx lisinopriL [Zestril] 10 mg PO DAILY #30 tab 03/10/25 03/11/25 Rx traMADol HCL 50 mg PO DIRECTED PRN 03/11/25 03/11/25 History Allergies Allergy/AdvReac Type Severity Reaction Status Date / Time codeine AdvReac Nausea & Verified 03/11/25 17:11 Vomiting PLASTIC BANDAGES Allergy Rash/Hives Uncoded 03/11/25 13:01 Physical Exam Vitals: Vital Signs Temp Pulse Resp BP Pulse Ox 03/11/25 22:45 97.9 F 76 20 136/71 98 03/11/25 18:00 82 17 182/92 99 03/11/25 12:57 98.2 F 72 20 173/88 98 Intake and Output 03/11/25 03/11/25 03/12/25 14:59 22:59 06:59 Other: Weight 73.936 kg Results CBC & Chem 7: 03/11/25 14:05 03/11/25 18:40 Labs: Abnormal Lab Results - Last 24 Hours (Table) 03/11/25 03/11/25 03/11/25 Range/Units 14:05 14:05 14:05 RBC 5.43 H (4.10-5.20) 10*6/uL Hgb 16.7 H (12.0-15.0) g/dL Hct 46.5 H (37.2-46.3) % Sodium 125 L (137-145) mmol/L Chloride 90 L (98-107) mmol/L Creatinine 0.31 L (0.52-1.04) mg/dL Glucose 119 H (74-99) mg/dL Urine Ketones Trace H (Negative) Ur Leukocyte Esterase Small H (Negative) Urine Bacteria Rare H (None) /hpf 03/11/25 Range/Units 18:40 RBC (4.10-5.20) 10*6/uL Hgb (12.0-15.0) g/dL Hct (37.2-46.3) % Sodium 127 L (137-145) mmol/L Chloride (98-107) mmol/L Creatinine (0.52-1.04) mg/dL Glucose (74-99) mg/dL Urine Ketones (Negative) Ur Leukocyte Esterase (Negative) Urine Bacteria (None) /hpf
[2025-03-12] MEDS: PANTOPRAZOLE 40 MG TABLET PO SCH (07:44)
[2025-03-12 07:46] LABS: Basophils # (A) 0.06 10*3/uL (0.00-0.10); Basophils % (A) 0.8 %; Eosinophils # (A) 0.16 10*3/uL (0.04-0.35); Eosinophils % (A) 2.1 %; HCT 42.4 % (37.2-46.3); HGB 14.8 g/dL (12.0-15.0); Lymphocytes # (A) 2.05 10*3/uL (0.90-5.00); Lymphocytes % (A) 27.0 %; MCH 30.4 pg (27.0-32.0); MCHC 34.9 g/dL (32.0-37.0); MCV 87.1 fL (80.0-97.0); Monocytes # (A) 0.65 10*3/uL (0.20-1.00); Monocytes % (A) 8.6 %; Neutrophils # (A) 4.63 10*3/uL (1.80-7.70); Neutrophils % (A) 61.1 %; Platelet Count 390 10*3/uL (140-440); RBC 4.87 10*6/uL (4.10-5.20); RDW 12.4 % (11.5-14.5); WBC 7.58 10*3/uL (4.50-10.00)
[2025-03-12] MEDS: traMADol 50 MG TAB PO PRN (07:46)
[2025-03-12] MEDS: LIDOCAINE 4% PATCH TOPICAL PRN (07:46)
[2025-03-12 08:08] LABS: African American GFR (CKD) >90 (>60 ml/min/1.73 sqM); Anion Gap 7 mmol/L; Blood Urea Nitrogen 5 mg/dL (7-17); Calcium 9.4 mg/dL (8.4-10.2); Carbon Dioxide 23 mmol/L (22-30); Chloride 100 mmol/L (98-107); Glucose 103 mg/dL (74-99); Non-African American GFR(CKD) >90 (>60 ml/min/1.73 sqM); Potassium 4.5 mmol/L (3.5-5.1); Sodium 130 mmol/L (137-145)
[2025-03-12] MEDS: ASPIRIN 81 MG PO SCH (08:58)
[2025-03-12] MEDS: METOPROLOL TARTRATE 25 MG TAB PO SCH (08:58)
[2025-03-12] MEDS: ENOXAPARIN 40 MG/0.4 ML SYRINGE SQ SCH (09:01)
--- NOTE | 2025-03-12 09:15 | US ---
EXAMINATION TYPE: US renal artery duplex complet DATE OF EXAM: 03/12/2025 COMPARISON: NONE CLINICAL INDICATION: Female, 64 years old with history of Secondary Hypertension; secondary HTN TECHNIQUE: Grayscale, color Doppler and spectral Doppler imaging of the bilateral renal arteries and kidneys. FINDINGS: MEASUREMENTS: RENAL SIZE: Right Kidney: 10.5 x 3.8 x 5.0 cm Left Kidney: 11.3 x 4.6 x 5.2 cm Right Kidney: No hydronephrosis or lesions seen Left Kidney: No hydronephrosis or lesions seen Abd Aorta: No AAA visualized RESISTANCE INDEX Right: 0.74 Left: 0.74 RA/AO RATIO (< 3.5 ) Right: 0.9 Left: 0.8 RENAL ARTERY VELOCITY ( < 180 cm/s) Right: 113 cm/s Left: 100.3 cm/s Domestic Cleaner Notes: exam limited by bowel gas and habitus. Unable to adequately visualize the left mi d renal artery or left renal vein Appropriate color Doppler flow and spectral waveforms to the kidneys bilaterally. Grayscale imaging of the kidneys and show no evidence for hydronephrosis or mass. No renal calculi or cysts visualized. IMPRESSION: Limited study as noted above. [facility], , 03/12/2025 9:13 AM
--- NOTE | 2025-03-12 10:31 | P.CNNES ---
History of Present Illness Consult date: 03/12/25 Requesting physician: uLke Cantu Reason for Consult: slurred speech History of Present Illness: This is a 64-year-old woman who presents emergency department because of episode of slurred speech and unable of getting her words out yesterday as well as blurred vision. Patient's is at bedside. She stated that she had significant dizziness that was worse than baseline and had blurred vision over both eyes as well as slurred speech and unable to get her words out and the episodes lasted for 40 minutes. She stated her symptoms resolved just shortly after she presented to our facility. The patient's symptoms began in the late afternoon. She denies any history of stroke. She denies being on any antip latelet. She does smoke about a half a pack a day. She has been having dizziness since she has been on lisinopril for the last 2 weeks. She had transient hyponatremia in the past but no symptoms like this before. She has been having elevated high blood pressure since her injury of her back moving furniture that happened 3 weeks ago. Denies any history of stroke or TIAs in the past. Some of the workup during this hospital visit consisted of: Presentation her systolic blood pressure is in the 170s to 180s and diastolic is in the 70-80s Initial sodium is 125 and currently is 130. I reviewed the rest of the lab work CT head is reported as no acute intracranial process. I personally reviewed the CT and I agree with the report CT angiography of the head and neck is reported as no evidence of dissection of cervical internal carotid artery or any vertebral artery. No evidence of any s ignificant stenosis at the carotid bifurcation. No evidence of intracranial high-grade stenosis or intracranial aneurysm. Review of Systems As per HPI Past Medical History Past Medical History: Hypertension Additional Past Medical History / Comment(s): Back pain, History of Any Multi-Drug Resistant Organisms: MRSA Date of last positivie culture/infection: 2007 MDRO Source:: KNEE Past Surgical History: No Surgical Hx Reported Additional Past Surgical History / Comment(s): Endoscopy Past Anesthesia/Blood Transfusion Reactions: No Reported Reaction Past Psychological History: Depression Smoking Status: Current every day smoker Past Alcohol Use History: Daily Past Drug Use History: None Reported Medications and Allergies Home Medications Medication Instructions Recorded Confirmed Type Aspirin 81 mg PO DAILY #30 tab 03/01/25 03/11/25 Rx Atorvastatin [Lipitor] 40 mg PO HS #30 tab 03/01/25 03/11/25 Rx Metoprolol Tartrate [Lopressor] 25 mg PO BID #30 tab 03/01/25 03/11/25 Rx Pantoprazole [Protonix] 40 mg PO AC-BRKFST #30 tab 03/01/25 03/11/25 Rx Cyclobenzaprine [Flexeril] 10 mg PO TID 03/08/25 03/11/25 History Lidocaine 4% Patch 1 patch TOPICAL DAILY PRN #10 patch 03/10/25 03/11/25 Rx lisinopriL [Zestril] 10 mg PO DAILY #30 tab 03/10/25 03/11/25 Rx traMADol HCL 50 mg PO DIRECTED PRN 03/11/25 03/11/25 History Allergies Allergy/AdvReac Type Severity Reaction Status Date / Time codeine AdvReac Nausea & Verified 03/11/25 17:11 Vomiting PLASTIC BANDAGES Allergy Rash/Hives Uncoded 03/11/25 13:01 Physical Examination - Vital Signs Vital Signs: Vital Signs Temp Pulse Resp BP Pulse Ox 03/12/25 10:03 62 18 156/85 98 03/12/25 07:40 98.0 F 76 188 H 159/79 97 03/12/25 05:38 91 18 161/75 95 03/11/25 22:45 97.9 F 76 20 136/71 98 03/11/25 18:00 82 17 182/92 99 03/11/25 12:57 98.2 F 72 20 173/88 98 GENERAL: The patient is lying in bed and is not in acute distress. NEUROLOGICAL: Higher mental function: The patient is awake, alert, oriented to self, place and time. Patient is following commands. No aphasia and no neglect. Cranial nerves: The pupils are round, equal and reactive to light and accommodation. Visual bateman are full to confrontation throughout. Extraocular movement is intact no nystagmus is noted. Facial sensation is normal to touch throughout. The facial strength is normal throughout. Hearing is normal bilaterally to hand rub. Tongue is midline and moved [id number] without any d ifficulty. No dysarthria is noted. Shoulder shrug is normal bilaterally. Motor: The strength is 5 over 5 throughout. Normal tone and bulk. Cerebellum: Normal finger to nose heel to dubois bilaterally. Sensation: Sensation is normal to touch throughout. Reflexes (right/left):2+ throughout. Plantars are downgoing bilaterally. Results - Laboratory Findings CBC and BMP: 03/12/25 07:12 03/12/25 07:12 Abnormal Lab Findings: Abnormal Labs 03/11/25 03/11/25 03/11/25 14:05 14:05 14:05 RBC 5.43 H Hgb 16.7 H Hct 46.5 H Sodium 125 L Chloride 90 L BUN Creatinine 0.31 L Glucose 119 H Urine Ketones Trace H Ur Leukocyte Esterase Small H Urine Bacteria Rare H 03/11/25 03/12/25 18:40 07:12 RBC Hgb Hct Sodium 127 L 130 L Chloride BUN 5 L Creatinine 0.40 L Glucose 103 H Urine Ketones Ur Leukocyte Esterase Urine Bacteria Assessment and Plan Assessment: This is a 64-year-old woman who presents emergency department because of dizziness, blurred vision over both eyes, dysarthria and expressive aphasia and symptoms lasted for 40 minutes Likely transient ischemic attack Hypertensive urgency Mild to moderate Hyponatremia--improving Underlying history of hypertension Nicotine Plan: I ordered the stroke workup: MRI of the brain, 2D echo, lipid panel. Patient was started on aspirin 81 mg by the primary team in addition I also started the patient on Plavix 75 mg daily. Patient to be on dual antiplatelet for 21 days and after 21 days stop Plavix but continue aspirin indefinitely. Patient is on Lipitor 40 mg nightly. Every 4 hour neurochecks Cardiac monitoring No need for PT and OT or TOP CLOSER since patient symptoms has resolved. Recommend permissive hypertension for 24 hours Patient was counseled on tobacco cessation Nephrology is on board Will defer the rest of the medical management department other specialist For DVT prophylaxis the patient is on Lovenox Thank you for the consultation. Time with Patient: Greater than 30
[2025-03-12] MEDS: CLOPIDOGREL 75 MG TAB PO SCH (10:42)
[2025-03-12 13:13] LABS: Cholesterol 101.00 mg/dL (0.00-200.00); HDL Cholesterol 46.00 mg/dL (40.00-60.00); LDL Cholesterol,Calculated 44.6 mg/dL (0.0-131.0); Triglycerides 52.20 mg/dL (0.00-149.00); VLDL Calculation 10.44 mg/dL (5.00-40.00)
--- NOTE | 2025-03-12 17:48 | P.PN ---
Subjective Progress Note Date: 03/12/25 Hospital Course: This is a 64-year-old female who presents emergency department because of shortness of breath. She stated that she had significant dizziness that was worse than baseline and had blurred vision over both eyes as well as slurred speech and unable to get her words out and the episodes lasted for 40 minutes. She stated her symptoms resolved just shortly after she presented to our facility. The patient's symptoms began in the late afternoon. She denies any history of stroke. She denies being on any antiplatelet. She does smoke about a half a pack a day. She has been having dizziness since she has been on lisinopril for the last 2 weeks. She had transient hyponatremia in the past but no symptoms like this before. She has been having elevated high blood pressure since her injury of her back moving furniture that happened 3 weeks ago. Denies any history of stroke or TIAs in the past. Subjective: Patient seen and examined at bedside. No acute events overnight. This morning pt. states she feels better and would like to go home. She mentions that she has never been sick like this before and it could be her recent prescription of blood pressure medication. Pertinent positives and negatives as discussed above, a complete review of systems was performed and all other systems are negative. Vitals: Signs Reviewed Physical Exam: General: nontoxic, no distress, appears at stated age Derm: warm, dry, intact Head: atraumatic, normocephalic, symmetric Eyes: EOMI, anicteric sclera Mouth: no lip lesion, mucus membranes moist Cardiovascular: S1 S2 reg, no murmur, rubs, or gallops Lungs: CTA bilateral, no rhonchi, no rales, no accessory muscle use Abdominal: soft, non-tender to palpation, no appreciable organomegaly Extremities: no gross muscle atrophy, no edema, no contractures Neuro: Alert, Oriented, CNII-XII grossly intact, gait normal Psych: well appearing, appropriate affect Data Received Today: Pertinent Labs: sodium 130, glucose 103, creatinine 0.40 Imaging: - renal artery ultrasound: shows no evidence for hydronephrosis or mass. No renal calculi or cysts - EKG: unremarkable - Angio CT: unremarkable; no evidence of acute intacranial hemorrhage, mass effect or midline shift. - Brain CT: unnremarkable; no acute intracranial process - Chest X-ray: no evidence of pleural effusion, focal consolidation or pneumothorax Assessment and Plan: #. Possible transient ischemic attack - stroke workup: MRI of the brain, 2D echo, lipid panel. - aspirin 81 mg started. - On dual antiplatelet for 21 days and after 21 days stop Plavix but continue aspirin indefinitely. - Neurology consulted, appreciate recommendations - Neurochecks - TSH, A1c, lipid panel - Echocardiogram - Monitor on telemetry for arrhythmia #. Hypertensive emergency - renal ultrasound conducted for secondary HTN. No abnormal findings - blood pressure: 156/85 - monitor for any changes - Resume lisinopril, metoprolol #. Hyponatremia -IV sodium chloride 0.9% #. Nicotine -Counseled on tobacco cessation Chronic: hyperlipidemia- continue zestril 10 mg PO Daily hypertension- continue lopressor 25 mg PO BID Code status: Full code Anticipated discharge place: pending clinical course Anticipated discharge time: pending clinical course Helen Joshi MD PGY-1 FM Dictation was produced using [employer] dictation software. please excuse any grammatical, word or spelling errors. I saw and evaluated the patient during the [place] and critical portions of this encounter, and discussed the case in detail with the resident author of this note, I agree with the Assessment and Plan, and my changes, if any, are highlighted in blue. Objective - Vital Signs Vital signs: Vital Signs Temp 98.0 F 03/12/25 07:40 Pulse 81 03/12/25 12:50 Resp 18 03/12/25 12:50 BP 156/85 03/12/25 10:03 Pulse Ox 98 03/12/25 12:50 FiO2 Intake & Output 03/11/25 03/12/25 03/12/25 18:59 06:59 18:59 Weight 73.936 kg - Labs CBC & Chem 7: 03/12/25 07:12 03/12/25 07:12 Labs: Abnormal Lab Results - Last 24 Hours (Table) 03/11/25 03/11/25 03/11/25 Range/Units 14:05 14:05 14:05 RBC 5.43 H (4.10-5.20) 10*6/uL Hgb 16.7 H (12.0-15.0) g/dL Hct 46.5 H (37.2-46.3) % Sodium 125 L (137-145) mmol/L Chloride 90 L (98-107) mmol/L BUN (7-17) mg/dL Creatinine 0.31 L (0.52-1.04) mg/dL Glucose 119 H (74-99) mg/dL Urine Ketones Trace H (Negative) Ur Leukocyte Esterase Small H (Negative) Urine Bacteria Rare H (None) /hpf 03/11/25 03/12/25 Range/Units 18:40 07:12 RBC (4.10-5.20) 10*6/uL Hgb (12.0-15.0) g/dL Hct (37.2-46.3) % Sodium 127 L 130 L (137-145) mmol/L Chloride (98-107) mmol/L BUN 5 L (7-17) mg/dL Creatinine 0.40 L (0.52-1.04) mg/dL Glucose 103 H (74-99) mg/dL Urine Ketones (Negative) Ur Leukocyte Esterase (Negative) Urine Bacteria (None) /hpf
--- NOTE | 2025-03-12 18:35 | P.NPCON ---
History of Present Illness - Reason for Consult Consult date: 03/12/25 hyponatremia - History of Present Illness 64-year-old female with a PMH of hypertension, Hyperlipidemia, chronic Hyponatremia who presented to ED c/o dizziness. and slurred speech. she was recently hospitalized for the evaluation of back pain and acute hyponatremia, she was discharged on 03/10. BP was elevated to 200s, she is admitted for further management, nephrology is consulted for hyponatremia, sodium level initially was 125, improved to 130 this morning. s/p IVF Review of Systems as above Past Medical History Past Medical History: Hypertension Additional Past Medical History / Comment(s): Back pain, History of Any Multi-Drug Resistant Organisms: MRSA Date of last positivie culture/infection: 2007 MDRO Source:: KNEE Past Surgical History: No Surgical Hx Reported Additional Past Surgical History / Comment(s): Endoscopy Past Anesthesia/Blood Transfusion Reactions: No Reported Reaction Past Psychological History: Depression Smoking Status: Current every day smoker Past Alcohol Use History: Daily Past Drug Use History: None Reported Medications and Allergies Home Medications Medication Instructions Recorded Confirmed Type Aspirin 81 mg PO DAILY #30 tab 03/01/25 03/11/25 Rx Atorvastatin [Lipitor] 40 mg PO HS #30 tab 03/01/25 03/11/25 Rx Metoprolol Tartrate [Lopressor] 25 mg PO BID #30 tab 03/01/25 03/11/25 Rx Pantoprazole [Protonix] 40 mg PO AC-BRKFST #30 tab 03/01/25 03/11/25 Rx Cyclobenzaprine [Flexeril] 10 mg PO TID 03/08/25 03/11/25 History Lidocaine 4% Patch 1 patch TOPICAL DAILY PRN #10 patch 03/10/25 03/11/25 Rx lisinopriL [Zestril] 10 mg PO DAILY #30 tab 03/10/25 03/11/25 Rx traMADol HCL 50 mg PO DIRECTED PRN 03/11/25 03/11/25 History Allergies Allergy/AdvReac Type Severity Reaction Status Date / Time codeine AdvReac Nausea & Verified 03/11/25 17:11 Vomiting PLASTIC BANDAGES Allergy Rash/Hives Uncoded 03/11/25 13:01 Physical Exam Vitals: Vital Signs Temp Pulse Resp BP Pulse Ox 03/12/25 07:40 98.0 F 76 188 H 159/79 97 03/12/25 05:38 91 18 161/75 95 03/11/25 22:45 97.9 F 76 20 136/71 98 03/11/25 18:00 82 17 182/92 99 03/11/25 12:57 98.2 F 72 20 173/88 98 General: no acute distress, well-nourished, Head: normocephalic and atraumatic Neck: supple, no appreciable thyromegaly Mouth: no lip lesion, mucus membranes moist Cardiovascular: normal S1S2, no murmur or gallops, positive dorsalis pedis pulse bilateral, no edema Lungs: clear to auscultation bilaterally, no wheezes or crackles or rhonchi, no accessory muscle use Abdominal: soft, nontender to palpation, no guarding, no rebound Ext: muscle strength 5 out of 5 in all 4 extremities grossly, no gross muscle atrophy Neuro: no focal sensory or motor deficits are noted Psych: Alert, oriented x3 Results - Lab Results Most recent lab results Calcium 9.4 mg/dL (8.4-10.2) 03/12/25 07:12 03/12/25 07:12 03/12/25 07:12 Assessment and Plan Assessment: 1. Acute on Chronic Hypoosmolar Hypovolemic hyponatremia , recently admitted w ith same issue attributed to thiazide diuretics. improved with saline and holding HCTZ. she was discharged off thiazide. sodium prior to discharge was 129. presented with sodium level 125, now improved to 130. s/p N/S maintenance TSH is 1.8 2. Hypertensive urgency , now controlled on BB and lisinopril 3. Upper back pain, Musculoskeletal Plan: stable sodium level at baseline monitor sodium level daily check urine osm and sodium if serum sodium trend down fluid restriction 1.5 L daily. avoid NSAIDs use encouraged protein intake Thank you for consulting nephrology service, will continue to follow up.
[2025-03-12] MEDS: ATORVASTATIN 40 MG TAB PO SCH (21:05)
[2025-03-13 02:53] VITALS: TEMP 97.9
[2025-03-13 06:22] LABS: HCT 42.2 % (37.2-46.3); HGB 14.5 g/dL (12.0-15.0); MCH 29.9 pg (27.0-32.0); MCHC 34.4 g/dL (32.0-37.0); MCV 87.0 fL (80.0-97.0); Platelet Count 397 10*3/uL (140-440); RBC 4.85 10*6/uL (4.10-5.20); RDW 12.5 % (11.5-14.5); WBC 8.41 10*3/uL (4.50-10.00)
[2025-03-13 06:50] LABS: African American GFR (CKD) >90 (>60 ml/min/1.73 sqM); Anion Gap 7 mmol/L; Blood Urea Nitrogen 5 mg/dL (7-17); Calcium 9.4 mg/dL (8.4-10.2); Carbon Dioxide 25 mmol/L (22-30); Chloride 99 mmol/L (98-107); Glucose 109 mg/dL (74-99); Magnesium 2.1 mg/dL (1.6-2.3); Non-African American GFR(CKD) >90 (>60 ml/min/1.73 sqM); Potassium 4.6 mmol/L (3.5-5.1); Sodium 131 mmol/L (137-145)
[2025-03-13] MEDS: CYCLOBENZAPRINE 5 MG TAB PO PRN (08:23)
--- NOTE | 2025-03-13 08:24 | XR ---
EXAMINATION TYPE: XR cervical spine comp DATE OF EXAM: 03/13/2025 6:12 AM COMPARISON: None. CLINICAL INDICATION: Female, 64 years old with history of neck shoulder pain, TECHNIQUE: Frontal, lateral, oblique, swimmers, and open mouth view of the cervical spine are obtaine d. FINDINGS: The cervical spine is visualized in its entirety from C1 thru the top of T1 level. It is s atisfactory in alignment without evidence of acute fracture or dislocation. The pre-vertebral soft t issue appears within normal limits. [id number] degenerative disc space narrowing at C5-6 with v entral and dorsal spondylosis. The C1-C2 articulation is unremarkable on the open mouth view. The ob lique images are within normal limits. IMPRESSION: No acute fracture or dislocation is seen in the cervical spine.ICD 10 NO FRACTURE, INITI AL EVALUATION [facility], , 03/13/2025 8:22 AM
[2025-03-13] MEDS: GABAPENTIN 100 MG CAP PO SCH (08:25)
[2025-03-13 08:44] VITALS: BP 112/57; PULSE 67; RESP 15
[2025-03-13 09:18] LABS: T4, Free (Free Thyroxine) 1.18 ng/dL (0.78-2.19)
--- NOTE | 2025-03-13 11:02 | P.PN ---
Subjective Progress Note Date: 03/13/25 Hospital Course: This is a 64-year-old female who presents emergency department because of shortness of breath. She stated that she had significant dizziness that was worse than baseline and had blurred vision over both eyes as well as slurred speech and unable to get her words out and the episodes lasted for 40 minutes. She stated her symptoms resolved just shortly after she presented to our facility. The patient's symptoms began in the late afternoon. She denies any history of stroke. She denies being on any antiplatelet. She does smoke about a half a pack a day. She has been having dizziness since she has been on lisinopril for the last 2 weeks. She had transient hyponatremia in the past but no symptoms like this before. She has been having elevated high blood pressure since her injury of her back moving furniture that happened 3 weeks ago. Denies any history of stroke or TIAs in the past. Subjective: No acute events overnight. Patient reports continued right upper back pain. That is her only concern this morning, stating that the other issues have not returned since arrival. She states that she moved rooms late at night so she is tired. She denies having any dizziness, headaches, blurry vision, weakness, nausea, vomiting. Pt does not want to start gabapentin as her sister had a poor reaction to it. She has been denying blood thinners. Pt was educated on the necessity of Plavix with her current symptoms and she is amenable to using Plavix. She does not want to take lovenox injections, reporting that she is active. Pertinent positives and negatives as discussed above, a complete review of systems was performed and all other systems are negative. Vitals Signs Reviewed. General: Nontoxic, no distress, appears at stated age Derm: Warm, dry Head: Atraumatic, normocephalic, symmetric Eyes: EOMI, no lid lag, anicteric sclera Mouth: No lip lesion, mucus membranes moist Cardiovascular: S1S2 reg, no murmur Lungs: CTA bilateral, no rhonchi, no rales, no accessory muscle use Abdominal: Soft, nontender to palpation, no guarding, no appreciable organomegaly Ext: No gross muscle atrophy, no edema, no contractures Muscle strength grossly 5/5 in the LUE, 4-5/5 in the RUE limited due to pain RUE range of motion limited due to pain, passive range of motion full Neuro: CN II-XI grossly intact, no focal neuro deficits Psych: Alert, oriented, appropriate affect Data Reviewed Today: Pertinent Labs: Sodium 131 (130 03/12, 127 03/11), glucose 109, TSH 6.460 Imaging: Transthoracic echocardiogram 03/01/2025 0836 Findings: Left ventricle ejection fraction estimated at 55-60%. Mildly increased septal wall thickness. Mildly increased posterior wall thickness. Normal left ventricular systolic function with no obvious regional wall motion abnormalities. Left ventricular cavity size normal. Normal right ventricle, right atrium, left atrium with no atrial thrombi or masses present on imaging Cervical spine x-ray 03/13/2025 6:12 AM Impression: No acute fracture or dislocation is seen in the cervical spine Mild to moderate degenerative disc space narrowing at C5-6 with ventral and dorsal spondylosis. Assessment and Plan: #Possible transient ischemic attack - stroke workup: - Unremarkable echo on 03/01 - MRI of the brain (pending) - Lipid panel (pending) - aspirin 81 mg started - On dual antiplatelet for 21 days and after 21 days stop Plavix but continue aspirin indefinitely. - Neurology consulted, appreciate recommendations - Neurochecks - TSH elevated, pending T4 - Monitor on telemetry for arrhythmia #Hypertensive emergency - renal ultrasound conducted for secondary HTN. No abnormal findings - blood pressure: 156/70 (03/13 0200) - monitor for any changes - Continue lisinopril, metoprolol #Hyponatremia - Sodium: 131 (03/13) - Continue IV sodium chloride 0.9% - Fluid restriction 1.5 L daily #Back pain - Cervical spine x-ray 03/13 showing no acute fracture or dislocation - Lidocaine patch PRN - Flexeril PRN - Consider Lyrica if pt reports more pain, currently does not want to start #Nicotine - Counseled on tobacco cessation Chronic: Hyperlipidemia: Lipitor 40 mg p.o. Hypertension: Zestril 10 mg p.o. daily, Lopressor 25 mg p.o. twice daily DVT ppx: Lovenox (patient refusing) Code status: Full code Anticipated discharge place: Home Anticipated discharge time: Pending TIA/stroke workup Rogelio Santana MD PGY-1 I saw and evaluated the patient during the [place] and critical portions of this encounter, and discussed the case in detail with the resident author of this note, I agree with the Assessment and Plan, and my changes, if any, are highlighted in blue. Objective - Vital Signs Vital signs: Vital Signs Temp 97.9 F 03/13/25 07:50 Pulse 67 03/13/25 07:50 Resp 15 03/13/25 07:50 BP 112/57 03/13/25 07:50 Pulse Ox 98 03/13/25 07:50 FiO2 Intake & Output 03/12/25 03/13/25 03/13/25 18:59 06:59 18:59 Weight 73.936 kg Other: # Voids 1 - Labs CBC & Chem 7: 03/13/25 05:46 03/13/25 05:46 Labs: Abnormal Lab Results - Last 24 Hours (Table) 03/12/25 03/13/25 Range/Units 07:12 05:46 Sodium 131 L (137-145) mmol/L BUN 5 L (7-17) mg/dL Creatinine 0.41 L (0.52-1.04) mg/dL Glucose 109 H (74-99) mg/dL Hemoglobin A1c 6.1 H (<=6.0) % TSH 6.460 H (0.465-4.680) mIU/L
[2025-03-13] MEDS: PREGABALIN 75 MG CAP PO SCH (11:10)
--- NOTE | 2025-03-13 13:33 | P.PN ---
Subjective Patient is seen for follow-up for hyponatremia. Status post saline Sodium is 131 today. No significant complaints today. Currently not on any IV fluids. 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 Acute on Chronic Hypoosmolar Hypovolemic hyponatremia , recently admitted with same issue attributed to thiazide diuretics. Improved with saline and holding HCTZ. She was discharged off of thiazide. Sodium prior to discharge was 129. presented with sodium level 125, now improved to 131. s/p N/S TSH is 1.8 2. Hypertensive urgency , now controlled on BB and lisinopril 3. Upper back pain, Musculoskeletal Plan: Patient will need repeat labs as outpatient in 1 to 2 days Continue off of thiazide diuretics She may benefit from sodium chloride tabs down the road if sodium decreases again and she is not volume overloaded. Advised to continue to maintain good oral protein intake.
--- NOTE | 2025-03-13 13:45 | P.PN ---
Subjective Progress Note Date: 03/13/25 I am following-up with the patient and she denies any new neurological issues. Is back to baseline. Pending MRI Brain which is schedule for later in the afternoon. Objective - Vital Signs Vital signs: Vital Signs Temp 97.9 F 03/13/25 07:50 Pulse 67 03/13/25 07:50 Resp 15 03/13/25 07:50 BP 112/57 03/13/25 07:50 Pulse Ox 98 03/13/25 07:50 FiO2 Intake & Output 03/12/25 03/13/25 03/13/25 18:59 06:59 18:59 Weight 73.936 kg Other: # Voids 1 - Exam GENERAL: The patient is lying in bed and is not in acute distress. NEUROLOGICAL: Higher mental function: The patient is awake, alert, oriented to self, place and time. Patient is following commands. No aphasia and no neglect. Cranial nerves: The pupils are round, equal and reactive to light and acco mmodation. Visual bateman are full to confrontation throughout. Extraocular movement is intact no nystagmus is noted. Facial sensation is normal to touch throughout. The facial strength is normal throughout. Hearing is normal bilaterally to hand rub. Tongue is midline and moved [id number] without any difficulty. No dysarthria is noted. Shoulder shrug is normal bilaterally. Motor: The strength is 5 over 5 throughout. Normal tone and bulk. Cerebellum: Normal finger to nose heel to dubois bilaterally. Sensation: Sensation is normal to touch throughout. Some of the workup during this hospital visit consisted of: Liipid panel: TG 52, cholestrol 101, LDL [address] head is reported as no acute intracranial process. I personally reviewed the CT and I agree with the report CT angiography of the head and neck is reported as no evidence of dissection of cervical internal carotid artery or any vertebral artery. No evidence of any significant stenosis at the carotid bifurcation. No evidence of intracranial high-grade stenosis or intracranial aneurysm. - Labs CBC & Chem 7: 03/13/25 05:46 03/13/25 05:46 Labs: Abnormal Lab Results - Last 24 Hours (Table) 03/12/25 03/13/25 Range/Units 07:12 05:46 Sodium 131 L (137-145) mmol/L BUN 5 L (7-17) mg/dL Creatinine 0.41 L (0.52-1.04) mg/dL Glucose 109 H (74-99) mg/dL Hemoglobin A1c 6.1 H (<=6.0) % TSH 6.460 H (0.465-4.680) mIU/L Assessment and Plan Assessment: This is a 64-year-old woman who presents emergency department because of dizziness, blurred vision over both eyes, dysarthria and expressive aphasia and symptoms lasted for 40 minutes Likely transient ischemic attack Hypertensive urgency Mild to moderate Hyponatremia--improving Underlying history of hypertension Nicotine Plan: Pending MRI of the brain, 2D echo. Patient was started on aspirin 81 mg by the primary team in addition I also started the patient on Plavix 75 mg daily. Patient to be on dual antiplatelet for 21 days and after 21 days stop Plavix but continue aspirin indefinitely. Patient is on Lipitor 40 mg nightly. 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 Recommend permissive hypertension for 24 hours Patient was counseled on tobacco cessation Nephrology is on board Will defer the rest of the medical management department other specialist For DVT prophylaxis the patient is on Lovenox Upon discharge, recommend the patient to follow-up with outpatient neurologist within 2-3 weeks. Time with Patient: Less than 30
--- NOTE | 2025-03-13 15:27 | MR ---
INDICATION: Patient age:Female; 64 years old; Reason for study: stroke. Slurred speech; PHH. COMPARISON: CT brain 03/11/2025, CTA head and neck 03/11/2025. TECHNIQUE: Multi planar, multi sequence imaging was performed through the brain without the administr ation intravenous contrast. FINDINGS: The edouard-white junctions, ventricular system, basal cisterns appear unremarkable. Age-appropriate cer ebral parenchymal volume. Diffusion-weighted imaging shows no evidence of restricted diffusion to sug gest acute/subacute infarct. Intracranial arterial flow voids are maintained. Midline structures show no abnormality. Few foci of high T2/FLAIR signal intensity are seen within the subcortical white mat ter. Largest measures up to 4 mm within the right frontal lobe subcortical white matter (series 601, image 26). The susceptibility weighted images do not reveal any evidence for micro-hemorrhage. The bone marrow signal is within normal limits. The paranasal sinuses and globes are unremarkable. IMPRESSION: 1. No evidence of intracranial mass or acute/subacute infarct. 2. Nonspecific minimal white matter changes, likely related to small vessel ischemic disease. Demyeli nating disease, chronic migraines, vasculitis, Lyme disease are other considerations. [facility], , 03/13/2025 3:25 PM
[2025-03-13 15:31] LABS: Cholesterol 102.00 mg/dL (0.00-200.00); HDL Cholesterol 45.60 mg/dL (40.00-60.00); LDL Cholesterol,Calculated 46.0 mg/dL (0.0-131.0); Triglycerides 51.90 mg/dL (0.00-149.00); VLDL Calculation 10.38 mg/dL (5.00-40.00)
--- NOTE | 2025-03-13 17:28 | P.DS ---
Providers Date of admission: 03/11/25 18:26 Attending physician: Shahnaz Bell MD Consults: 03/11/25 18:25 Consult Physician Urgent Consulting Provider: Carlos Deal Consult Reason/Comments: acute/recurrent hyponatremia Do you want consulting provider notified?: Yes 03/12/25 06:49 Consult Physician Routine Consulting Provider: Oracio Oreilly Consult Reason/Comments: slurred speech Do you want consulting provider notified?: Yes, Notify in am [facility] care [facility] Course: Discharge Diagnosis: #Possible transient ischemic attack #Hypertensive emergency #Hyponatremia #Back pain Chronic: Hyperlipidemia Hypertension Hospital Course: This is a 64-year-old female who presents emergency department because of shortness of breath. She stated that she had significant dizziness that was worse than baseline and had blurred vision over both eyes as well as slurred speech and unable to get her words out and the episodes lasted for 40 minutes. She stated her symptoms resolved just shortly after she presented to our facility. The patient's symptoms began in the late afternoon. She denied any history of stroke. She denied being on any antiplatelet. She does smoke about a half a pack a day. She has been having dizziness since she has been on lisinopril for the last 2 weeks. She had transient hyponatremia in the past but no symptoms like this before. She has been having elevated high blood pressure since her injury of her back moving furniture that happened 3 weeks ago. Denies any history of stroke or TIAs in the past. Patient was worked up for a TIA/stroke. CT head was unremarkable, prior echo from 03/01 had no evidence of thrombi or masses present on imaging, brain MRI showed no evidence of intracranial mass or acute/subacute infarct. Lipid panel was unremarkable. During hospital stay, patient was found to be in a hypertensive emergency. BP was monitored closely, she was started on a HTN regimen including lisinopril 10 mg, metoprolol 25 mg twice daily. Renal ultrasound was unremarkable. Additionally, she was found to have hyponatremia. IV fluids were administered with a 1.5 L fluid restriction, with a goal to increase sodium by 5 to 8 mmol/L 24 hours. On discharge sodium was 131. She had elevated TSH of 6.460, reflex T4 was 1.18 within normal limits. Patient's primary concern at the time of discharge was her right sided upper back pain. Cervical spine x-ray on 03/13 showed mild to moderate degenerative disc space narrowing at C5-6 with ventral dorsal spondylosis, no concern for acute fracture or dislocation. Patient was continued on lidocaine patches and Flexeril as needed. Discussion was had regarding gabapentin/pregabalin for nerve pain but patient did not want to start another medication. Patient discharged to home in stable condition. Patient was started on Plavix 75 mg p.o. daily, otherwise continue home medications. Follow-up with PCP subsequent to discharge. Follow-up with neurology in 2 weeks. Patient seen and examined at bedside. Vital signs reviewed and stable. General: Nontoxic, no distress, appears at stated age Derm: Warm, dry Head: Atraumatic, normocephalic, symmetric Eyes: EOMI, no lid lag, anicteric sclera Mouth: No lip lesion, mucus membranes moist Cardiovascular: S1S2 reg, no murmur Lungs: CTA bilateral, no rhonchi, no rales, no accessory muscle use Abdominal: Soft, nontender to palpation, no guarding, no appreciable organomegaly Ext: No gross muscle atrophy, no edema, no contractures Muscle strength grossly 5/5 in the LUE, 4-5/5 in the RUE limited due to pain RUE range of motion limited due to pain, passive range of motion full Neuro: CN II-XI grossly intact, no focal neuro deficits Psych: Alert, oriented, appropriate affect Rogelio Santana MD PGY-1 I saw and evaluated the patient during the [place] and critical portions of this encounter, and discussed the case in detail with the resident author of this note, I agree with the Assessment and Plan, and my changes, if any, are highlighted in blue. Patient Condition at Discharge: Stable Plan - Discharge Summary Discharge Rx Participant: No New Discharge Prescriptions: New Clopidogrel [Plavix] 75 mg PO DAILY #21 tab Continue Atorvastatin [Lipitor] 40 mg PO HS #30 tab Cyclobenzaprine [Flexeril] 10 mg PO TID Lidocaine 4% Patch 1 patch TOPICAL DAILY PRN #10 patch PRN Reason: Moderate To Severe Spasms Aspirin 81 mg PO DAILY #30 tab Metoprolol Tartrate [Lopressor] 25 mg PO BID #30 tab Pantoprazole [Protonix] 40 mg PO AC-BRKFST #30 tab lisinopriL [Zestril] 10 mg PO DAILY #30 tab traMADol HCL 50 mg PO DIRECTED PRN PRN Reason: Pain Discharge Medication List Aspirin 81 mg PO DAILY #30 tab 03/01/25 [Rx] Atorvastatin [Lipitor] 40 mg PO HS #30 tab 03/01/25 [Rx] Metoprolol Tartrate [Lopressor] 25 mg PO BID #30 tab 03/01/25 [Rx] Pantoprazole [Protonix] 40 mg PO AC-BRKFST #30 tab 03/01/25 [Rx] Cyclobenzaprine [Flexeril] 10 mg PO TID 03/08/25 [History] Lidocaine 4% Patch 1 patch TOPICAL DAILY PRN #10 patch 03/10/25 [Rx] lisinopriL [Zestril] 10 mg PO DAILY #30 tab 03/10/25 [Rx] traMADol HCL 50 mg PO DIRECTED PRN 03/11/25 [History] Clopidogrel [Plavix] 75 mg PO DAILY #21 tab 03/13/25 [Rx] Follow up Appointment(s)/Referral(s): Inez Campos MD [Medical Doctor] - 2 Weeks Rivera Jason DO [Primary Care Provider] - 1-2 days Patient Instructions/Handouts: Clopidogrel (By mouth), Transient Ischemic Attack (DC) Discharge Disposition: HOME SELF-CARE
== END 2025-03-13 17:25 | disposition home or self-care (01) ==
LOC: EC 12:51 → 6NMEDSUR 18:26 → 5NMEDONC 22:58 → 1SOBS 03-12 10:46
PROVIDERS: ADMIT Family Medicine; ATTEND Family Medicine
DX: R47.01 Aphasia (principal); H53.8 Other visual disturbances; R47.1 Dysarthria and anarthria; I16.1 Hypertensive emergency; I10 Essential (primary) hypertension; E87.1 Hypo-osmolality and hyponatremia; E86.1 Hypovolemia; M54.6 Pain in thoracic spine; R91.1 Solitary pulmonary nodule; F32.A Depression, unspecified; E78.5 Hyperlipidemia, unspecified; F17.200 Nicotine dependence, unspecified, uncomplicated; Z79.82 Long term (current) use of aspirin; Z79.899 Other long term (current) drug therapy; Z88.5 Allergy status to narcotic agent
CPT/HCPCS: 96361 ×4; 96360; 99285; 36415; 93005; 84439; 83930; 80061 ×2; 80053; 80048 ×2; 84443; 83605; 83735; 84295; 84484; 85025 ×2; 85027; 81001; 83935; 80320; 83036; 72050; 71046; 93975; 70496; 70450; 70498; 70551; G0378 ×4; Q9967

== ENCOUNTER → 2025-03-14 | Outpatient (CLI) | payer BC ==
--- NOTE | 2025-03-15 08:48 | XR ---
EXAMINATION TYPE: XR thoracic spine complete DATE OF EXAM: 03/14/2025 4:22 PM COMPARISON: None. CLINICAL INDICATION: Female, 64 years old with history of M546 THOR PAIN, TECHNIQUE: Frontal, lateral, and swimmer's view of thoracic spine are obtained. FINDINGS: Thoracic spine show satisfactory alignment without evidence of acute fracture or dislocatio n. Vertebral body heights are preserved. Mild scattered degenerative disc space narrowing. Visuali zed ribs are unremarkable. IMPRESSION: No acute fracture or dislocation is seen in the thoracic spine. ICD 10 NO FRACTURE, INIT IAL EVALUATION [facility], , 03/15/2025 8:46 AM
== END | disposition home or self-care (01) ==
LOC: RADXRYALE 15:48
PROVIDERS: ATTEND Physician Assistant Medical
DX: M54.6 Pain in thoracic spine (principal)
CPT/HCPCS: 72072